=== PATIENT | female | born 1945 | race Caucasian/White ===

== ENCOUNTER → 2017-02-04 | Outpatient (CLI) | payer MEDICARE ==
--- NOTE | 2017-02-05 06:56 | XR ---
EXAMINATION TYPE: XR chest 2V DATE OF EXAM: 02/04/2017 HISTORY: R05 Cough, R06.02 Shortness of breath. REFERENCE: Previous study dated 05/09/2010. FINDINGS: The lungs are clear. Pleural spaces are clear. Heart size is normal. IMPRESSION: NORMAL CHEST.
== END ==
LOC: RADXRMAIN 15:57
PROVIDERS: ATTEND Internal Medicine Geriatric Medicine
DX: R05 Cough (principal); R06.02 Shortness of breath
CPT/HCPCS: 71020

== ENCOUNTER → 2017-03-19 | Outpatient (CLI) | payer MEDICARE ==
--- NOTE | 2017-03-20 12:20 | MM ---
Reason for exam: screening (asymptomatic). Last mammogram was performed 3 years and 6 months ago. History: Patient is postmenopausal and has history of endometrial cancer at age 38. Took estrogen for 8 years 8 months. Physical Findings: A clinical breast exam by your physician is recommended on an annual basis and results should be correlated with mammographic findings. MG 3D Screening Mammo W/Cad Bilateral CC and MLO view(s) were taken. Prior study comparison: September 30, 2013, bilateral digital screening mammo w/CAD. The breast tissue is heterogeneously dense. This may lower the sensitivity of mammography. No significant changes when compared with prior studies. ASSESSMENT: Negative, BI-RAD 1 RECOMMENDATION: Routine screening mammogram of both breasts in 1 year.
== END | disposition home or self-care (01) ==
LOC: RADMAMWWP 11:07
PROVIDERS: ATTEND Internal Medicine Geriatric Medicine
DX: Z12.31 Encounter for screening mammogram for malignant neoplasm of breast (principal)
CPT/HCPCS: 77063; G0202

== ENCOUNTER → 2017-09-23 | Outpatient (CLI) | payer MEDICARE ==
[2017-09-23 12:31] LABS: Anion Gap 11 mmol/L; Blood Urea Nitrogen 12 mg/dL (7-17); Calcium 9.9 mg/dL (8.4-10.2); Carbon Dioxide 28 mmol/L (22-30); Chloride 104 mmol/L (98-107); Glucose 110 mg/dL (74-99); Potassium 4.6 mmol/L (3.5-5.1); Sodium 143 mmol/L (137-145)
== END | disposition home or self-care (01) ==
LOC: LABWHC1 11:55
PROVIDERS: ATTEND Internal Medicine Nephrology
DX: N18.3 Chronic kidney disease, stage 3 (moderate) (principal)
CPT/HCPCS: 36415; 80048

== ENCOUNTER → 2017-09-23 | Outpatient (CLI) | payer MEDICARE ==
--- NOTE | 2017-10-01 10:54 | P.ARTDOP ---
Arterial Doppler Upper EXTREMITY ARTERIAL DOPPLER: DATE OF SERVICE: 09/23/2017 Reason for study: Altered pressures left arm. Doppler waveforms: Multiphasic throughout on the right. Atypical throughout at the left brachial and below. Pressure gradients: At the brachial on the left. Radial pressure on the right is 138 and on the left is 1:15. Impression: There is a significant gradient across the left brachial and right to left at the radial. Suggests occlusive process of the left brachial. Clinical correlation recommended.
== END | disposition home or self-care (01) ==
LOC: RADUSWWP 12:00
PROVIDERS: ATTEND Internal Medicine Interventional Cardiology
DX: I77.1 Stricture of artery (principal)
CPT/HCPCS: 93923

== ENCOUNTER → 2017-11-08 | Outpatient (CLI) | payer MEDICARE ==
--- NOTE | 2017-11-08 12:36 | CT ---
EXAMINATION TYPE: CT sinus wo con DATE OF EXAM: 11/08/2017 COMPARISON: NONE HISTORY: Maxillary sinusitis per order. Left-sided facial swelling for 4 weeks with headaches and diz ziness and vision changes all per patient. CT DLP: 589 mGycm. Automated Exposure Control for Dose Reduction was Utilized. TECHNIQUE: CT scan of the sinuses is performed without contrast, axial images are obtained, coronal r eformatted images are also reviewed. FINDINGS: There is slightly smaller caliber right maxillary sinus identified. There is nonformed left frontal sinus noted. Visualized sinuses are clear without suspicious opacification or air-fluid leve ls. The ostiomeatal complex is patent bilaterally on the coronal images. Visualized portion of mastoid air cells show no abnormal opacification. The globes are intact bilate rally. Visualized portion of brain parenchyma shows mild to moderate diffuse age-related cerebral at rophy. IMPRESSION: The paranasal sinuses are clear and the ostiomeatal complex is patent bilaterally.
== END | disposition home or self-care (01) ==
LOC: RADCTMAIN 11:51
PROVIDERS: ATTEND Internal Medicine Geriatric Medicine
DX: J32.0 Chronic maxillary sinusitis (principal)
CPT/HCPCS: 70486

== ENCOUNTER 2017-11-18 06:22 | Day surgery (SDC) | payer MEDICARE ==
[2017-11-12 13:59] VITALS: BMI 31.5
[~2017-11-18 06:22] MED LIST: ALPRAZolam 0.25 MG TAB PO PRN; ALPRAZolam 0.5 MG TAB PO PRN; ASPIRIN 325 MG TAB PO STA; ATORVASTATIN 80 MG TAB PO STA; NITROGLYCERIN SL TABS 0.4 MG TAB SUBLINGUAL PRN; SODIUM CHLORIDE 0.9% 1,000 ML in EMPTY BAG 1 BAG IV ONE
[2017-11-18 07:00] VITALS: TEMP 98
[2017-11-18 07:04] LABS: HCT 37.7 % (34.0-46.0); HGB 12.7 gm/dL (11.4-16.0); MCH 29.5 pg (25.0-35.0); MCHC 33.7 g/dL (31.0-37.0); MCV 87.5 fL (80.0-100.0); Mean Platelet Volume 7.9; Platelet Count 284 k/uL (150-450); RBC 4.31 m/uL (3.80-5.40); WBC 7.9 k/uL (3.8-10.6)
[2017-11-18 07:12] LABS: Potassium 4.1 mmol/L (3.5-5.1)
[2017-11-18] MEDS ORDERED: LIDOCAINE 2% INJ 20 MG/ML (20 ML MDV) ONE ×2 (07:18→07:46)
[2017-11-18] MEDS ORDERED: fentaNYL (PF) 50 MCG/ML 2 ML AMP ONE (07:19)
[2017-11-18] MEDS ORDERED: fentaNYL (PF) 50 MCG/ML 2 ML AMP IV ONE (07:28)
[2017-11-18] MEDS ORDERED: LIDOCAINE 2% INJ 20 MG/ML SQ ONE ×3 (07:31→07:48)
[2017-11-18 07:32] LABS: Glucose,Whole Blood 102 mg/dL (75-99)
[2017-11-18] MEDS ORDERED: IOPAMIDOL-370 125ML BTL INJ ONE (07:45)
[2017-11-18 07:59] LABS: Eosinophils # (M) 0.08 k/uL (0-0.7); Lymphocytes # (M) 4.58 k/uL (1.0-4.8); Monocytes # (M) 0.87 k/uL (0-1.0); Neutrophils # (M) 2.45 k/uL (1.3-7.7); Neutrophils % (M) 31 %; Nucleated Red Blood Cells 0 /100 WBC (0-0); Total Cells Counted 200
[2017-11-18] MEDS ORDERED: RX INFO: IV CONTRAST WAS GIVEN 1 EACH MISC MISCELLANE PRN (08:09)
[2017-11-18] MEDS ORDERED: LEVOTHYROXINE 50 MCG TAB PO SCH (08:15)
[2017-11-18] MEDS ORDERED: SODIUM CHLORIDE 0.9% 1,000 ML IV SCH (08:15)
[2017-11-18] MEDS ORDERED: NON-FORMULARY DRUG (Cyanocobalamin (Vitamin B-12) [Vitamin B-12] 1,000 MCG) PO SCH (08:15)
--- NOTE | 2017-11-18 08:38 | CC ---
CARDIAC CATHETERIZATION REPORT Mrs. Angulo is a 71-year-old female with known history of hypertension, hyperlipidemia, and diabetes mellitus who has been complaining of dyspnea on exertion. Underwent a myocardial perfusion imaging that revealed lateral wall ischemia. In view of that, recommendation was made regarding cardiac catheterization. The procedures as well as the risks and complications were discussed with the patient who is in full understanding and agreement. PROCEDURE: Patient was brought to the medical laboratory technicians in a fasting semi-sedated state after receiving fentanyl and Benadryl and after receiving moderate conscious state, she was draped and prepped in conventional fashion using Xylocaine anesthesia in the Seldinger technique. A 6-Niuean sheath was introduced in the right femoral artery. Selective right and left angiography was performed using 6-Niuean 4 bend right and left Jillian catheter. Multiple views of the coronary artery including hemiaxial views were obtained. Following that, the right Jillian catheter was used to obtain images of the left subclavian and following that, a 6-Niuean tight pigtail catheter was introduced in the left ventricle and a 30-degree CHENG of the left ventricle was obtained. Following that, catheter and sheath were removed. Hemostasis was obtained with deployment of a Perclose. There was no immediate complication. Patient was returned to her room in stable condition. FINDINGS: FLUOROSCOPY: There is mild to moderate calcification involving the LAD. LEFT MAIN: This is a large-sized vessel bifurcating in left circumflex and left anterior descending artery. Left main coronary artery has no evidence of high-grade stenosis. LEFT ANTERIOR DESCENDING ARTERY: This is a large-sized vessel reaching toward the apex with a wraparound apex segment giving rise to a diagonal branch of moderate caliber. The left anterior descending artery proximally has a 20% plaque. The rest of the vessel has no high-grade stenosis. LEFT CIRCUMFLEX: This is a nondominant vessel giving rise to a large obtuse marginal branch. The left circumflex as well as branches have no evidence of obstructive coronary artery disease. RIGHT CORONARY ARTERY: This is a dominant vessel, moderate in caliber bifurcating in PDA, posterolateral segment and branches. The right coronary artery as well as branches have no evidence of obstructive coronary artery disease. LEFT VENTRICULOGRAM: Left ventriculogram is performed in 30-degree CHENG view and revealed normal left ventricular size and systolic function. Ejection fraction 60%. LEFT SUBCLAVIAN ANGIOGRAPHY: Left subclavian angiography revealed a 70% to 80% stenosis shortly after the takeoff in a long segment. HEMODYNAMICS: There was no gradient across the aortic valve. The left ventricular end- diastolic pressure was 16 mmHg. Next, gradient across the subclavian was 50 to 60 mmHg. CONCLUSION: 1. Mildly calcified coronary arteries with mild coronary artery disease involving the left anterior descending artery. 2. Normal left ventricular size and systolic function. 3. Severe stenosis in the left subclavian with significant gradient. Duration of procedure 22 minutes. RECOMMENDATION: Patient will be continued on aggressive coronary risk modification. She will be evaluated by Dr. Fonseca for stenting of the left subclavian. Those findings and recommendation were discussed with the patient and her family and are in full understanding and agreement. MMODL / IJN: [id number] /
--- NOTE | 2017-11-18 08:42 | LTR ---
November 18, 2017 Re: FrankytenaEvette Dear Dr. Poole: I had the opportunity to perform cardiac catheterization on Mrs. Angulo on the 18 of November and a full copy of the procedure note will be forwarded to you. In brief, she was found to have mild obstructive coronary artery disease with significant stenosis involving the left subclavian. At this time, I will continue medical therapy and I would recommend evaluation for stenting of the left subclavian. I will keep you updated on her progress. Thank you again for allowing me the opportunity to participate in her care. Please feel free to call for any questions. Sincerely yours, MD SALOME VelaL / [place]ERTON: [id number] /
[2017-11-18] MEDS ORDERED: NON-FORMULARY DRUG (Omeprazole [Omeprazole] 20 MG) PO SCH (09:00)
[2017-11-18] MEDS ORDERED: NON-FORMULARY DRUG (Ubidecarenone [Co Q-10] 200 MG) PO SCH (09:00)
[2017-11-18] MEDS ORDERED: NON-FORMULARY DRUG (Aspirin Ec 162 MG) PO SCH (09:00)
[2017-11-18] MEDS ORDERED: MAGNESIUM OXIDE 400 MG TAB PO SCH (09:00)
[2017-11-18] MEDS ORDERED: NON-FORMULARY DRUG (Sitagliptin 100 MG) PO SCH (09:00)
[2017-11-18] MEDS ORDERED: NON-FORMULARY DRUG (Omega-3 Fatty Acids/Fish Oil [Fish Oil 1,000 Mg Softgel] 1 EACH) PO SCH (09:00)
[2017-11-18] MEDS ORDERED: NON-FORMULARY DRUG (Biotin [Biotin] 5,000 MCG) PO SCH (09:00)
[2017-11-18] MEDS ORDERED: METOPROLOL SUCCINATE (ER) 25 MG TAB.ER.24H PO SCH (09:00)
[2017-11-18] MEDS ORDERED: NON-FORMULARY DRUG (Multivit-Min/Fa/Lycopen/Lutein [Centrum Silver Tablet] 1 EACH) PO SCH (09:00)
[2017-11-18] MEDS ORDERED: CHOLECALCIFEROL 1,000 UNIT TAB PO SCH (09:00)
[2017-11-18 10:54] VITALS: BP 127/61; PULSE 68; RESP 16
[2017-11-18] MEDS ORDERED: ATORVASTATIN 40 MG TAB PO SCH (21:00)
[2017-11-20] MEDS ORDERED: LEVOTHYROXINE 50 MCG TAB PO SCH (06:30)
== END 2017-11-18 14:52 | disposition home or self-care (01) ==
LOC: CATHCVL 06:22
PROVIDERS: ATTEND Internal Medicine Interventional Cardiology
DX: I25.10 Atherosclerotic heart disease of native coronary artery without angina pectoris (principal); I70.8 Atherosclerosis of other arteries; R94.39 Abnormal result of other cardiovascular function study; I10 Essential (primary) hypertension; E78.2 Mixed hyperlipidemia; I65.21 Occlusion and stenosis of right carotid artery; E11.9 Type 2 diabetes mellitus without complications; Z79.84 Long term (current) use of oral hypoglycemic drugs; Z79.899 Other long term (current) drug therapy
CPT/HCPCS: 93458; 80048; 85025; C1894; C1769; C1760; J2001; J3010; Q9967

== ENCOUNTER 2017-12-06 08:03 | Day surgery (SDC) | payer MEDICARE ==
[2017-12-06] MEDS ORDERED: SODIUM CHLORIDE 0.9% 1,000 ML IV ONE (08:15)
[2017-12-06 08:57] LABS: Glucose,Whole Blood 111 mg/dL (75-99)
[2017-12-06] MEDS ORDERED: ACETAMINOPHEN TAB 325 MG TAB PO STA (09:20)
[2017-12-06] MEDS ORDERED: MIDAZOLAM 2 MG/2 ML VIAL IVP ONE (11:22)
[2017-12-06] MEDS: fentaNYL (PF) 50 MCG/ML 2 ML AMP IVP ONE ×2 (11:22→11:56)
[2017-12-06] MEDS ORDERED: LIDOCAINE 2% INJ 20 MG/ML SQ ONE (11:27)
[2017-12-06] MEDS ORDERED: HEPARIN SODIUM 1,000 UN/ML (10ML VL) IV ONE (11:30)
[2017-12-06] MEDS ORDERED: CLOPIDOGREL 75 MG TAB PO ONE (12:06)
[2017-12-06] MEDS ORDERED: IOPAMIDOL-370 125ML BTL INJ ONE (12:06)
[2017-12-06] MEDS ORDERED: ACETAMINOPHEN 1300 MG PO PRN (12:07)
[2017-12-06] MEDS ORDERED: SODIUM CHLORIDE 0.9% 1,000 ML IV SCH (12:15)
--- NOTE | 2017-12-06 12:38 | IR ---
EXAMINATION TYPE: IR stent intravas non coronary DATE OF EXAM: 12/06/2017 CLINICAL HISTORY: Left subclavian stenosis TECHNIQUE: Fluoroscopy. COMPARISON: None. FINDINGS: Fluoroscopic guidance was provided during left upper extremity arteriogram with subsequent angioplasty and stent placement procedure performed by Dr. Fonseca. A total of 7.7 minutes of fluorosc opic time was utilized during the procedure and 6 cine images was acquired. Images acquired show acce ss with stenosis, subsequent balloon dilatation and stent placement in the left subclavian artery sugar tical or proximal portion. IMPRESSION: As Above.
--- NOTE | 2017-12-06 12:59 | PTCA ---
PERCUTANEOUSTRANS CORORONARY ANGIOGRAPHY PERCUTANEOUS PERIPHERAL INTERVENTION: DATE OF PROCEDURE: 12/06/2017 PERFORMING PHYSICIAN: Sabino Fonseca MD, rigging engineer. PROCEDURE PERFORMED: 1. Selective left subclavian angiogram. 2. Successful stenting of the proximal left subclavian artery using 8 x 27 mm Visi-Pro balloon expandable stent with good angiographic results. INDICATION: This is a pleasant 71-year-old female patient who sees Dr. Chaudhari in the office as an outpatient who was experiencing left arm discomfort and left arm intermittent claudication. She was found to have severe disease involving the left subclavian. She was brought today to undergo an intervention. APPROACH: Right common femoral artery. COMPLICATION: None. LEVEL OF SEDATION: Moderate with sedation length of 40 minutes. PROCEDURE DESCRIPTION: After obtaining an informed consent, the patient was brought to the cardiac laboratory sampler. The right common femoral artery was cannulated using micropuncture technique, the micropuncture wire passed easily, then I placed a 7-British sheath in the right common femoral artery. Anticoagulation was initiated using heparin and the patient was given a weight-based heparin at 8000 units. Subsequently I did select the left subclavian using a Angel right catheter. An 0.035 advantage wire was advanced distally in the left subclavian. After that, I did exchange my 11 cm 7-British sheath into 90 cm 7- British sheath using the 0.035 advantage wire. After that, I did balloon angioplasty using 6 mm balloon by 20 mm and after that I deployed 8 x 27 mm balloon expandable stent where the stent was positioned in the proximal left subclavian and deployed under 14 atmospheres for about 1 minute. The following angiogram showed excellent angiographic results and the procedure was completed without any complication. After that, I did exchange my 90 cm 7-British sheath into 11 cm 7-British sheath using the 0.035 advantage wire. I did after that close the right groin using the Perclose device. Procedure was completed without any complication. There was good right groin hemostasis performed by the end of the procedure. POSTPROCEDURE MANAGEMENT: 1. Dual anti-platelet therapy. 2. Risk factor modifications. 3. Follow up with the patient. MMODL / IJN: [id number] /
--- NOTE | 2017-12-06 12:59 | LTR ---
December 06, 2017 Re: Adele Evette Dear Dr. Poole: Ms. Evette Angulo was found to have severe left subclavian stenosis by Dr. Chaudhari. She was quite symptomatic and experiencing left arm intermittent claudication. Beside that, she has very diminished pulse in the left radial artery. She was brought today and underwent successful stenting of the left subclavian with good angiographic results and without any complication. Thank you for allowing us to participate in her care. Sincerely, MD DELFINO Adkins / ROVERTO: [id number] /
[2017-12-06 13:12] LABS: Glucose,Whole Blood 98 mg/dL (75-99)
[2017-12-06] MEDS ORDERED: CYANOCOBALAMIN 500 MCG TAB PO SCH (16:30)
[2017-12-06 17:00] LABS: Glucose,Whole Blood 140 mg/dL (75-99)
[2017-12-06 19:12] VITALS: BMI 32.5
[2017-12-06 20:30] LABS: Glucose,Whole Blood 236 mg/dL (75-99)
[2017-12-06] MEDS ORDERED: ATORVASTATIN 40 MG TAB PO SCH (21:00)
[2017-12-06 22:25] VITALS: RESP 18
[2017-12-07 04:26] VITALS: PULSE 80
[2017-12-07 06:13] LABS: Basophils # (A) 0.1 k/uL (0-0.2); Basophils % (A) 1 %; Eosinophils # (A) 0.3 k/uL (0-0.7); Eosinophils % (A) 3 %; HGB 12.2 gm/dL (11.4-16.0); Lymphocytes # (A) 2.3 k/uL (1.0-4.8); Lymphocytes % (A) 26 %; MCH 29.5 pg (25.0-35.0); MCHC 33.1 g/dL (31.0-37.0); MCV 89.1 fL (80.0-100.0); Mean Platelet Volume 7.4; Monocytes # (A) 0.6 k/uL (0-1.0); Monocytes % (A) 7 %; Neutrophils # (A) 5.4 k/uL (1.3-7.7); Neutrophils % (A) 62 %; Platelet Count 299 k/uL (150-450); RBC 4.15 m/uL (3.80-5.40); RDW 12.5 % (11.5-15.5); WBC 8.8 k/uL (3.8-10.6)
[2017-12-07 06:13] LABS: Glucose,Whole Blood 100 mg/dL (75-99)
[2017-12-07 06:24] LABS: Calcium 9.5 mg/dL (8.4-10.2); Potassium 4.3 mmol/L (3.5-5.1)
[2017-12-07] MEDS ORDERED: LEVOTHYROXINE 25 MCG TAB PO SCH (06:30)
[2017-12-07] MEDS ORDERED: PANTOPRAZOLE 40 MG TABLET PO SCH (07:30)
[2017-12-07] MEDS ORDERED: NON-FORMULARY DRUG (Omega-3 Fatty Acids/Fish Oil [Fish Oil 1,000 Mg Softgel] 1 EACH) PO SCH (09:00)
[2017-12-07] MEDS ORDERED: ASPIRIN 81 MG PO SCH (09:00)
[2017-12-07] MEDS ORDERED: NON-FORMULARY DRUG (Biotin [Biotin] 5,000 MCG) PO SCH (09:00)
[2017-12-07] MEDS ORDERED: METOPROLOL SUCCINATE (ER) 25 MG TAB.ER.24H PO SCH (09:00)
[2017-12-07] MEDS ORDERED: LINAGLIPTIN 5 MG TABLET PO SCH (09:00)
[2017-12-07] MEDS ORDERED: CLOPIDOGREL 75 MG TAB PO SCH (09:00)
[2017-12-07] MEDS ORDERED: NON-FORMULARY DRUG (Ubidecarenone [Co Q-10] 200 MG) PO SCH (09:00)
--- NOTE | 2017-12-07 09:36 | DS ---
DISCHARGE SUMMARY DATE OF ADMISSION: December 06, 2017. DISCHARGE DATE: December 07, 2017 BRIEF HISTORY: This is a pleasant 71-year-old female patient who was experiencing left arm intermittent claudication and she underwent an angiogram which revealed critical disease involving the left subclavian. She underwent yesterday successful stenting of the left subclavian with good angiographic results and using balloon expandable stent. The procedure was performed from the right groin. The patient is going to be discharged home today on dual anti-platelet therapy as well as on statin. She is to be seen in the office in a week. The right groin is soft with mild tenderness. MMODL / IJN: [id number] /
[2017-12-07 10:46] VITALS: BP 138/60; TEMP 97.5
[2017-12-07] MEDS ORDERED: MAGNESIUM OXIDE 400 MG TAB PO SCH (12:00)
[2017-12-07] MEDS ORDERED: MULTIVITAMINS, THERA 1 EACH TAB PO SCH (12:00)
[2017-12-07] MEDS ORDERED: CHOLECALCIFEROL 1,000 UNIT TAB PO SCH (12:00)
[2017-12-08] MEDS ORDERED: LEVOTHYROXINE 50 MCG TAB PO SCH (06:30)
== END 2017-12-07 10:43 | disposition home or self-care (01) ==
LOC: CATHCVL 08:03 → 6SEL 12:00 → CATHCVL 12-07 10:43
PROVIDERS: ATTEND Internal Medicine Interventional Cardiology
DX: I70.8 Atherosclerosis of other arteries (principal); I73.9 Peripheral vascular disease, unspecified; I10 Essential (primary) hypertension; E78.2 Mixed hyperlipidemia; I65.21 Occlusion and stenosis of right carotid artery; E11.9 Type 2 diabetes mellitus without complications; Z79.84 Long term (current) use of oral hypoglycemic drugs; Z79.890 Hormone replacement therapy; Z79.899 Other long term (current) drug therapy
CPT/HCPCS: 37236; 50433; 80048; 85025; C1894 ×2; C1769 ×4; C1725; C1760; J2001; J2250; J3010; J1644; Q9967

== ENCOUNTER 2018-09-04 19:22 | Emergency (ER) | payer MEDICARE, OTHER ==
--- NOTE | 2018-09-04 19:50 | ED ---
Fall HPI - General Chief Complaint: Fall Stated Complaint: Fall, head injury Time Seen by Provider: 09/04/18 19:46 Source: patient Mode of arrival: wheelchair - History of Present Illness Initial Comments: 72-year-old female past medical history of diabetes, hypertension, PAD on plavix presents today for chief complaint of fall. Patient states that just prior to arrival she was walking outside, when she slipped on snow covered ice. Patient states she fell onto her butt and hit the back of her head. She denies loss of consciousness. Patient is on Plavix. Patient states she has pain at the site of contact with the ground, denies diffuse headache. Patient denies diplopia, visual changes, vision loss, nausea, vomiting, muscle weakness , loss of sensation of the upper or lower extremities. Patient does admit to neck tenderness. Remainder of ROS negative, patient denies any hip pain, difficulty ambulating, injury to any other extremity, abdominal or chest trauma.Patient denies any recent fever, chills, shortness of breath, chest pain , loss of bowel bladder control, urinary retention, numbness between the legs of the lower extremities, abdominal pain, nausea or vomiting, numbness or tingling, dysuria or hematuria, constipation or diarrhea, headaches or visual changes, or any other complaints. On arrival patient is well-appearing. Ambulatory without difficulty. Patient's vital signs within acceptable limits. - Related Data Home Medications Medication Instructions Recorded Confirmed Atorvastatin Calcium [Lipitor] 40 mg PO HS 07/21/14 09/04/18 Magnesium Oxide 400 mg PO HS 07/21/14 09/04/18 Metoprolol Succinate (ER) [Toprol 25 mg PO DAILY 07/21/14 09/04/18 XL] Omeprazole 20 mg PO DAILY 07/21/14 09/04/18 Cholecalciferol [Vitamin D3] 1,000 unit PO DAILY 07/26/14 09/04/18 Levothyroxine Sodium [Synthroid] 50 mcg PO SUWEFR 07/26/14 09/04/18 Aspirin EC [Ecotrin Low Dose] 162 mg PO DAILY 11/12/17 09/04/18 Biotin 5,000 mcg PO DAILY 11/12/17 09/04/18 Cyanocobalamin (Vitamin B-12) 1,000 mcg PO MOWEFR 11/12/17 09/04/18 [Vitamin B-12] Levothyroxine Sodium [Synthroid] 25 mcg PO MOTUTHSA 11/12/17 09/04/18 Multivit-Min/FA/Lycopen/Lutein 1 tab PO DAILY 11/12/17 09/04/18 [Centrum Silver Tablet] [place]-3 Fatty Acids/Fish Oil [Fish 1 each PO DAILY 11/12/17 09/04/18 Oil 1,000 mg Softgel] Ubidecarenone [Co Q-10] 200 mg PO DAILY 11/12/17 09/04/18 metFORMIN HCL 1,000 mg PO DAILY 09/04/18 09/04/18 sitaGLIPtin PHOSPHATE [Januvia] 100 mg PO DAILY 09/04/18 09/04/18 Previous Rx's Medication Instructions Recorded Clopidogrel [Plavix] 75 mg PO DAILY #90 tab 12/07/17 Allergies Allergy/AdvReac Type Severity Reaction Status Date / Time No Known Allergies Allergy Verified 09/04/18 20:26 Review of Systems ROS Statement: Those systems with pertinent positive or pertinent negative responses have been documented in the HPI. ROS Other: All systems not noted in ROS Statement are negative. Past Medical History Past Medical History: Cancer, Diabetes Mellitus, GERD/Reflux, Hyperlipidemia, Hypertension, Musculoskeletal Disorder, Osteoarthritis (OA), Renal Disease, Thyroid Disorder Additional Past Medical History / Comment(s): HX SEVERE CRAMPS "ALL OVER"-TAKES MAGNESIUM ., HX CERVICAL CA., HX ELEV WBC, WATCHING FOR CLL. HX CHEST PRESSURE , IMPROVED W/ RX. SHORT OF BREATH WITH EXERTION. HAS "BLOCKAGE IN LT ARM"- STATES NUMBNESS LEFT ARM & HAND WITH OCCASIONAL TREMORS., INFECTION LT SIDE FACE, RECENT AB RX, REMAINS SL SWOLLEN, NO KNOWN CAUSE., STAGE 3 KIDNEY DISEASE. , HX FX BALL OF RT SHOULDER 2017., SEE CARDIOLOGY H & P. History of Any Multi-Drug Resistant Organisms: None Reported Past Surgical History: Adenoidectomy, Bladder Surgery, Heart Catheterization, Hysterectomy, Joint Replacement, Orthopedic Surgery, Tonsillectomy, Tubal Ligation Additional Past Surgical History / Comment(s): Kidney stone removal. TRIGGER THUMB. EYELIDS LIFTED. ARTHROSCOPIES PETRONA KNEES. Left knee and left hip replaced. PARTIAL Thyroid EXC., HEART CATH (11/18/17) Past Anesthesia/Blood Transfusion Reactions: Previous Problems w/ Anesthesia Additional Past Anesthesia/Blood Transfusion Reaction / Comment(s): YEARS AGO HAD HARD TIME AWAKENING FROM SURG X1. Past Psychological History: Anxiety, Depression Smoking Status: Former smoker Past Alcohol Use History: Rare Past Drug Use History: None Reported - Past Family History Mother Family Medical History: Dementia, Pulmonary Embolus Additional Family Medical History / Comment(s): Spinal stenosis. POSS PE. Parkinsons. Father Family Medical History: CVA/TIA, Diabetes Mellitus, Hypertension, Myocardial Infarction ([place]) Additional Family Medical History / Comment(s): Aortic aneurysm. Alzheimers. General Exam - General Exam Comments Initial Comments: General: The patient is awake and alert, in no distress, and does not appear acutely ill. Eye: +3 mm pupils are equal, round and reactive to light, extra-ocular movements are intact. No nystagmus. There is normal conjunctiva bilaterally. No signs of icterus. Ears, nose, mouth and throat: There are moist mucous membranes and no oral lesions. No Espinoza or raccoon sign. Neck: The neck is supple, there is no tenderness or JVD. Cardiovascular: There is a regular rate and rhythm. No murmur, rub or gallop is appreciated. Respiratory: Lungs are clear to auscultation, respirations are non-labored, breath sounds are equal. No wheezes, stridor, rales, or rhonchi. Present in all lung momin Gastrointestinal: Soft, non-distended, non-tender abdomen without masses or organomegaly noted. There is no rebound or guarding present. Musculoskeletal: Paravertebral tenderness to palpation of the cervical spine. Mild midline tenderness . She has tenderness Full range of motion to forward flexion-extension lateral flexion and rotation. Mild tenderness intermittent of the lower thoracic and lumbar spine. Paravertebral tenderness with palpable muscle spasm of the lumbar spine. Normal ROM of the upper and lower extremities , no tenderness. No tenderness to palpation of the hips and pelvis bilaterally. No pain with a si compression. No internal or external rotation noted or shortening of the legs. Patient is able to without difficulty. Strength 5/5 of the upper and lower extremities. Sensation intact of the upper and lower extremities equal bilaterally. Radial and DP pulses equal bilaterally 2+. No pronator drift. Finger to nose coordinated. Neurological: A&O x 3. CN II-XII intact, There are no obvious motor or sensory deficits. Coordination appears grossly intact. Speech is normal. Skin: Skin is warm and dry and no rashes or lesions are noted. Superficial abrasion of the simple area of head, there is no laceration. No active bleeding. Psychiatric: Cooperative, appropriate mood & affect, normal judgment. Limitations: no limitations Course Vital Signs 09/04/18 09/04/18 09/04/18 19:27 21:00 22:02 Temperature 98.2 F 98.6 F Pulse Rate 105 H 93 90 Respiratory 20 16 16 Rate Blood Pressure 145/89 119/79 138/84 O2 Sat by Pulse 97 95 99 Oximetry Medical Decision Making - Medical Decision Making 72-year-old female presenting for slip on ice. Patient denied chest pain dizziness, shortness breath, dyspnea prior to falling. Patient states it was mechanical nature. Imaging studies negative for acute intracranial or osseous process. Patient neurovascularly intact, well-appearing. No focal neurological deficits on examination. Patient tetanus updated. No evidence of laceration despite triage note obvious septal region of head. No raccoon or Espinoza sign. Patient given [place] 3 for pain management, she states this helped symptoms. I discussed case with attending provider Dr. Haro at this time we do feel patient is stable for discharge with primary care follow-up. Return parameters were discussed at length with patient who verbalizes understanding. Patient discharged stable condition appearing well. Disposition Clinical Impression: Head injury, Scalp abrasion, Scalp hematoma, Fall, Low back pain Disposition: HOME SELF-CARE Condition: Good Instructions (If sedation given, give patient instructions): Head Injury (ED), Acute Low Back Pain (ED) Additional Instructions: Please use home medications as discussed. Please follow-up with family doctor in the next 2 days. Please return to emergency room if the symptoms increase or worsen or for any other concerns, as discussed. Is patient prescribed a controlled substance at d/c from ED?: No Referrals: Ethan Poole MD [Primary Care Provider] - 1-2 days Time of Disposition: 21:49
[2018-09-04] MEDS ORDERED: Acetaminophen-Codeine 300-30mg TAB PO STA (20:20)
--- NOTE | 2018-09-04 20:48 | CT ---
EXAMINATION TYPE: CT brain jamie bnetley con DATE OF EXAM: 09/04/2018 COMPARISON: 07/05/2013 HISTORY: pain from fall, contusion to back of head CT DLP: 1296.5 mGycm Automated exposure control for dose reduction was used. TECHNIQUE: CT scan of the head and cervical spine are performed without contrast. FINDINGS: High over the convexity in the subcutaneous soft tissues is a 5 cm x 5 cm x 2 cm subcutaneo us hematoma. There is no underlying skull fracture. No intracranial hemorrhage. There is no intracran ial mass or mass effect or definite new attenuation defect. The mastoid sinus air cells and middle ea r cavities and paranasal sinuses are clear. The orbits are intact. Cervical spine is visualized in its entirety from C1 through upper thoracic levels and demonstrates s atisfactory alignment without evidence of acute fracture or dislocation. Prevertebral soft tissue ap pears within normal limits. Moderate multilevel cervical spondylosis changes noted. The C1-C2 articul ation is unremarkable. IMPRESSION: 1. There is no acute fracture or dislocation evident in the cervical spine. 2. No acute intracranial hemorrhage, mass effect, or midline shift is seen. 3. Subcutaneous hematoma high over the convexity.
[2018-09-04 21:03] VITALS: RESP 16
[2018-09-04] MEDS ORDERED: DIPH,PERTUS(ACELL)TETVAC-LF 0.5 ML VIAL IM ONE (21:12)
--- NOTE | 2018-09-04 21:17 | CT ---
EXAMINATION TYPE: CT thor lumbar spine wo con DATE OF EXAM: 09/04/2018 COMPARISON: None HISTORY: pain following fall CT DLP: 1149.6 mGycm Automated exposure control for dose reduction was used. FINDINGS: There is no fracture or malalignment. The morphology of each vertebral segments is maintained. Multilevel mild and moderate spondylosis changes are appreciated. No focal skeletal lesion. No acute paraspinal soft tissue abnormalities. IMPRESSION: NEGATIVE FOR FRACTURE OR MALALIGNMENT.
[2018-09-04 22:03] VITALS: BP 138/84; PULSE 90; TEMP 98.6
== END 2018-09-04 21:55 | disposition home or self-care (01) ==
LOC: EC 19:22
DX: S00.03XA Contusion of scalp, initial encounter (principal); M54.5 Low back pain; Z23 Encounter for immunization; E11.9 Type 2 diabetes mellitus without complications; K21.9 Gastro-esophageal reflux disease without esophagitis; E78.5 Hyperlipidemia, unspecified; I10 Essential (primary) hypertension; M19.90 Unspecified osteoarthritis, unspecified site; E07.9 Disorder of thyroid, unspecified; Z79.82 Long term (current) use of aspirin; Z79.84 Long term (current) use of oral hypoglycemic drugs; Z79.890 Hormone replacement therapy; Z79.899 Other long term (current) drug therapy; Z95.5 Presence of coronary angioplasty implant and graft; Z96.642 Presence of left artificial hip joint; Z96.652 Presence of left artificial knee joint; Z85.41 Personal history of malignant neoplasm of cervix uteri; Z87.891 Personal history of nicotine dependence; W00.0XXA Fall on same level due to ice and snow, initial encounter; Y92.009 Unspecified place in unspecified non-institutional (private) residence as the place of occurrence of the external cause
CPT/HCPCS: 70450; 72125; 72128; 72131; 90471; 90715; 99283

== ENCOUNTER → 2019-01-02 | Outpatient (CLI) | payer MEDICARE, OTHER ==
--- NOTE | 2019-01-02 14:13 | MR ---
EXAMINATION TYPE: MR neck wo/w con DATE OF EXAM: 01/02/2019 COMPARISON: None HISTORY: Facial swelling/pain CONTRAST: Multiplanar multispin echo imaging of the neck was performed both before and after the administration of contrast utilizing Gadavist 7.5 mL. FINDINGS: There appear to be changes of left-sided thyroidectomy. Right thyroid lobe is unremarkable. Visualized submandibular glands appear symmetric. Parotid glands also appear to be symmetric. No lesi on is identified. The supraglottic, glottic and subglottic portions of the airway are patent. No definitive mass identi fied. No evidence for adenopathy greater than 1 cm throughout the neck. Vascular structures appear patent and symmetric. No evidence for abscess or soft tissue mass. No significant edema identified and clinical correlation is advised. IMPRESSION: No significant abnormality to account for the patient's symptoms.
--- NOTE | 2019-01-02 14:15 | MR ---
EXAMINATION TYPE: MR orbits wo/w con DATE OF EXAM: 01/02/2019 COMPARISON: None HISTORY: Aphasia, facial swelling CONTRAST: Standard multiplanar, multisequence MRI departmental protocol utilizing 7.5 mL intravenous Gadavist g adolinium contrast. FINDINGS: The globes are symmetric. No intra or extraconal lesion is identified. No evidence for inflammatory p rocess. Optic nerves appeared symmetric and free of lesion or abnormal edema. The extraocular muscula ture appear symmetric bilaterally. There is no evidence for exophthalmos. Lacrimal glands appear unre markable. Paranasal sinuses are well-aerated. IMPRESSION: No distinct abnormality of the orbits.
== END | disposition home or self-care (01) ==
LOC: RADMRIMAIN 12:21
PROVIDERS: ATTEND Otolaryngology
DX: R22.0 Localized swelling, mass and lump, head (principal)
CPT/HCPCS: 70543; A9585

== ENCOUNTER 2020-08-10 08:54 | Emergency (ER) | payer MEDICARE, OTHER ==
--- NOTE | 2020-08-10 09:10 | ED ---
Syncope HPI - General Stated Complaint: SYNCOPE EPISODE Time Seen by Provider: 08/10/20 08:56 - History of Present Illness Initial Comments: 74-year-old female with history of hypertension presenting to the emergency department today for chief complaint of a syncopal episode. Patient states that she was watching her shovel, when she became lightheaded dizzy and felt like she is going to pass out she states she laid down and did not have syncopal episode states he stood back up she had a similar sensation.pt states she no longer feels lightheaded. She states that she has been having pain that radiates down the left posterior leg wrapping around towards the mid thigh. Patient denies any lower leg numbness denies urinary retention loss of bowel bladder control patient denies falls or direct trauma. Patient states that she thinks the pain is causing her to feel like passing out as she does not tolerate pain well as this happened in the past. Patient states the pain increases ambulation. She denies abdominal pain chest or back pain denies chest pressure jaw pain and arm pain nausea Or abdominal pain vomiting diarrhea fevers cough congestion. Patient denies a known history of aneurysm. Denies pleuritic chest pain, dyspnea. Patient states that she had some burning of the right calf last week, was evaluated with orthopedic surgeon. Patient has no additional complaints and upon arrival she appears nontoxic distress - Related Data Home Medications Medication Instructions Recorded Confirmed Atorvastatin Calcium [Lipitor] 40 mg PO HS 07/21/14 09/04/18 Magnesium Oxide 400 mg PO HS 07/21/14 09/04/18 Metoprolol Succinate (ER) [Toprol 25 mg PO DAILY 07/21/14 09/04/18 XL] Omeprazole 20 mg PO DAILY 07/21/14 09/04/18 Cholecalciferol [Vitamin D3 (25 1,000 unit PO DAILY 07/26/14 09/04/18 Mcg = 1000 Iu)] Levothyroxine Sodium [Synthroid] 50 mcg PO SUWEFR 07/26/14 09/04/18 Aspirin EC [Ecotrin Low Dose] 162 mg PO DAILY 11/12/17 09/04/18 Biotin 5,000 mcg PO DAILY 11/12/17 09/04/18 Cyanocobalamin (Vitamin B-12) 1,000 mcg PO MOWEFR 11/12/17 09/04/18 [Vitamin B-12] Levothyroxine Sodium [Synthroid] 25 mcg PO MOTUTHSA 11/12/17 09/04/18 Multivit-Min/FA/Lycopen/Lutein 1 tab PO DAILY 11/12/17 09/04/18 [Centrum Silver Tablet] [place]-3 Fatty Acids/Fish Oil [Fish 1 each PO DAILY 11/12/17 09/04/18 Oil 1,000 mg Softgel] Ubidecarenone [Co Q-10] 200 mg PO DAILY 11/12/17 09/04/18 metFORMIN HCL 1,000 mg PO DAILY 09/04/18 09/04/18 sitaGLIPtin PHOSPHATE [Januvia] 100 mg PO DAILY 09/04/18 09/04/18 Previous Rx's Medication Instructions Recorded Clopidogrel [Plavix] 75 mg PO DAILY #90 tab 12/07/17 Allergies Allergy/AdvReac Type Severity Reaction Status Date / Time No Known Allergies Allergy Verified 09/04/18 20:26 Review of Systems ROS Statement: Those systems with pertinent positive or pertinent negative responses have been documented in the HPI. ROS Other: All systems not noted in ROS Statement are negative. Past Medical History Past Medical History: Cancer, Diabetes Mellitus, GERD/Reflux, Hyperlipidemia, Hypertension, Musculoskeletal Disorder, Osteoarthritis (OA), Renal Disease, Thyroid Disorder Additional Past Medical History / Comment(s): HX SEVERE CRAMPS "ALL OVER"-TAKES MAGNESIUM ., HX CERVICAL CA., HX ELEV WBC, WATCHING FOR CLL. HX CHEST PRESSURE, IMPROVED W/ RX. SHORT OF BREATH WITH EXERTION. HAS "BLOCKAGE IN LT ARM"-STATES NUMBNESS LEFT ARM & HAND WITH OCCASIONAL TREMORS., INFECTION LT SIDE FACE, RECENT AB RX, REMAINS SL SWOLLEN, NO KNOWN CAUSE., STAGE 3 KIDNEY DISEASE., HX FX BALL OF RT SHOULDER 2017., SEE CARDIOLOGY H & P. History of Any Multi-Drug Resistant Organisms: None Reported Past Surgical History: Adenoidectomy, Bladder Surgery, Heart Catheterization, H ysterectomy, Joint Replacement, Orthopedic Surgery, Tonsillectomy, Tubal Ligation Additional Past Surgical History / Comment(s): Kidney stone removal. TRIGGER THUMB. EYELIDS LIFTED. ARTHROSCOPIES PETRONA KNEES. Left knee and left hip replaced. PARTIAL Thyroid EXC., HEART CATH (11/18/17) Past Anesthesia/Blood Transfusion Reactions: Previous Problems w/ Anesthesia Additional Past Anesthesia/Blood Transfusion Reaction / Comment(s): YEARS AGO HAD HARD TIME AWAKENING FROM SURG X1. Past Psychological History: Anxiety, Depression Past Alcohol Use History: Rare Past Drug Use History: None Reported - Past Family History Mother Family Medical History: Dementia, Pulmonary Embolus Additional Family Medical History / Comment(s): Spinal stenosis. POSS PE. Parkinsons. Father Family Medical History: CVA/TIA, Diabetes Mellitus, Hypertension, Myocardial Infarction ([place]) Additional Family Medical History / Comment(s): Aortic aneurysm. Alzheimers. General Exam - General Exam Comments Initial Comments: General: The patient is awake and alert, in no distress Eye: Pupils are equal, round and reactive to light, extra-ocular movements are intact. No nystagmus. There is normal conjunctiva bilaterally. No signs of icterus. Ears, nose, mouth and throat: There are moist mucous membranes and no oral lesions. Neck: The neck is supple, there is no tenderness or JVD. Cardiovascular: There is a regular rate and rhythm. No murmur, rub or gallop is appreciated. Respiratory: Lungs are clear to auscultation, respirations are non-labored, breath sounds are equal. No wheezes, stridor, rales, or rhonchi. Gastrointestinal: Soft, non-distended, non-tender abdomen without masses or organomegaly noted. There is no rebound or guarding present. No pulsatile masses Musculoskeletal: Normal inspection of the cervicothoracic and lumbar spine no midline tenderness however there is left-sided paraspinal tenderness .Normal ROM, of the LE including left hip intact, tenderness causes shooting pain when moved. Strength 5/5 of the LE b/l. Sensation intact of the LE b/l. Radial and DP pulses equal bilaterally 2+. Neurological: A&O x 3. CN II-XII intact grossly, There are no obvious motor or sensory deficits. Coordination appears grossly intact. Speech is normal. Skin: Skin is warm and dry and no rashes or lesions are noted. no LE edema. Psychiatric: Cooperative, appropriate mood & affect, normal judgment. Course Vital Signs 08/10/20 08/10/20 08:58 10:48 Temperature 98.0 F 97.8 F Pulse Rate 76 75 Respiratory 16 14 Rate Blood Pressure 123/77 120/68 O2 Sat by Pulse 98 99 Oximetry EKG Findings - EKG Comments: EKG Findings:: Ventricular rate 69 bpm, NE interval 154 ms, QRS duration 88 ms, QT/QTC 404/432 ms this is normal sinus no ST elevation or depression is appreciated Medical Decision Making - Medical Decision Making cc presyncope, sciatica like pain. Labs stable. performed orthostatic BP/HR normal. Pt troponin (-). Dimer (-). CXR clear. XR degenerative changes that do no appear to be an acute osseous process. pt EKG no acute findings. no presyncope in ER. pt states she thinks it was all due to her low back pain that radiates to the left leg, no swelling on exam. pulses WNL. no skin changes. pt ambulatory. pt ricardo tylenol #3 she states she wants to go home. recommended outpatient lumbar MRI, return for recurrent symptoms of presyncope or uncontrolled pain. pt disdcharged appearing well. Dr. Farr agreeable to care plan. - Lab Data Result diagrams: 08/10/20 09:24 08/10/20 09:24 Lab Results 08/10/20 08/10/20 08/10/20 Range/Units 09:24 09:24 09:24 WBC 10.9 H (3.8-10.6) k/uL RBC 4.39 (3.80-5.40) m/uL Hgb 13.3 (11.4-16.0) gm/dL Hct 39.8 (34.0-46.0) % MCV 90.7 (80.0-100.0) fL MCH 30.4 (25.0-35.0) pg MCHC 33.5 (31.0-37.0) g/dL RDW 12.3 (11.5-15.5) % Plt Count 302 (150-450) k/uL MPV 7.2 Neutrophils % 68 % Lymphocytes % 17 % Monocytes % 6 % Eosinophils % 7 % Basophils % 1 % Neutrophils # 7.4 (1.3-7.7) k/uL Lymphocytes # 1.9 (1.0-4.8) k/uL Monocytes # 0.6 (0-1.0) k/uL Eosinophils # 0.7 (0-0.7) k/uL Basophils # 0.1 (0-0.2) k/uL PT 9.5 (9.0-12.0) sec INR 0.9 (<1.2) APTT 20.6 L (22.0-30.0) sec D-Dimer 0.48 (<0.60) mg/L FEU Sodium 137 (137-145) mmol/L Potassium 4.5 (3.5-5.1) mmol/L Chloride 106 (98-107) mmol/L Carbon Dioxide 26 (22-30) mmol/L Anion Gap 5 mmol/L BUN 15 (7-17) mg/dL Creatinine 0.90 (0.52-1.04) mg/dL Est GFR (CKD-EPI)AfAm 74 (>60 ml/min/1.73 sqM) Est GFR (CKD-EPI)NonAf 64 (>60 ml/min/1.73 sqM) Glucose 107 H (74-99) mg/dL Plasma Lactic Acid Isiah (0.7-2.0) mmol/L Calcium 9.2 (8.4-10.2) mg/dL Magnesium 2.0 (1.6-2.3) mg/dL Total Bilirubin 0.3 (0.2-1.3) mg/dL AST 19 (14-36) U/L ALT 12 (4-34) U/L Alkaline Phosphatase 60 (38-126) U/L Troponin I (0.000-0.034) ng/mL NT-Pro-B Natriuret Pep pg/mL Total Protein 6.0 L (6.3-8.2) g/dL Albumin 3.6 (3.5-5.0) g/dL 08/10/20 08/10/20 08/10/20 Range/Units 09:24 09:24 09:24 WBC (3.8-10.6) k/uL RBC (3.80-5.40) m/uL Hgb (11.4-16.0) gm/dL Hct (34.0-46.0) % MCV (80.0-100.0) fL MCH (25.0-35.0) pg MCHC (31.0-37.0) g/dL RDW (11.5-15.5) % Plt Count (150-450) k/uL MPV Neutrophils % % Lymphocytes % % Monocytes % % Eosinophils % % Basophils % % Neutrophils # (1.3-7.7) k/uL Lymphocytes # (1.0-4.8) k/uL Monocytes # (0-1.0) k/uL Eosinophils # (0-0.7) k/uL Basophils # (0-0.2) k/uL PT (9.0-12.0) sec INR (<1.2) APTT (22.0-30.0) sec D-Dimer (<0.60) mg/L FEU Sodium (137-145) mmol/L Potassium (3.5-5.1) mmol/L Chloride (98-107) mmol/L Carbon Dioxide (22-30) mmol/L Anion Gap mmol/L BUN (7-17) mg/dL Creatinine (0.52-1.04) mg/dL Est GFR (CKD-EPI)AfAm (>60 ml/min/1.73 sqM) Est GFR (CKD-EPI)NonAf (>60 ml/min/1.73 sqM) Glucose (74-99) mg/dL Plasma Lactic Acid Isiah 1.4 (0.7-2.0) mmol/L Calcium (8.4-10.2) mg/dL Magnesium (1.6-2.3) mg/dL Total Bilirubin (0.2-1.3) mg/dL AST (14-36) U/L ALT (4-34) U/L Alkaline Phosphatase (38-126) U/L Troponin I <0.012 (0.000-0.034) ng/mL NT-Pro-B Natriuret Pep 405 pg/mL Total Protein (6.3-8.2) g/dL Albumin (3.5-5.0) g/dL Disposition Clinical Impression: Pre-syncope, Low back pain, Radiculopathy, Spondylisthesis Disposition: HOME SELF-CARE Condition: Good Instructions (If sedation given, give patient instructions): Near Syncope (ED), Lumbar Radiculopathy (ED) Additional Instructions: Please use medication as discussed. Please follow-up with family doctor in the next 2 days, as well as orthopedic spine within the next week Please return to emergency room if the symptoms increase or worsen or for any other concerns. . Is patient prescribed a controlled substance at d/c from ED?: No Referrals: Ethan Poole MD [Primary Care Provider] - 1-2 days Maynor Tran DO [Doctor of Osteopathic Medicine] - 1-2 days Time of Disposition: 11:07
[2020-08-10 09:45] LABS: Basophils # (A) 0.1 k/uL (0-0.2); Basophils % (A) 1 %; Eosinophils # (A) 0.7 k/uL (0-0.7); Eosinophils % (A) 7 %; HCT 39.8 % (34.0-46.0); HGB 13.3 gm/dL (11.4-16.0); Lymphocytes # (A) 1.9 k/uL (1.0-4.8); Lymphocytes % (A) 17 %; MCH 30.4 pg (25.0-35.0); MCHC 33.5 g/dL (31.0-37.0); MCV 90.7 fL (80.0-100.0); Mean Platelet Volume 7.2; Monocytes # (A) 0.6 k/uL (0-1.0); Monocytes % (A) 6 %; Neutrophils # (A) 7.4 k/uL (1.3-7.7); Neutrophils % (A) 68 %; Platelet Count 302 k/uL (150-450); RBC 4.39 m/uL (3.80-5.40); RDW 12.3 % (11.5-15.5); WBC 10.9 k/uL (3.8-10.6)
[2020-08-10 09:54] LABS: Albumin 3.6 g/dL (3.5-5.0); Calcium 9.2 mg/dL (8.4-10.2); Potassium 4.5 mmol/L (3.5-5.1); Total Bilirubin 0.3 mg/dL (0.2-1.3)
--- NOTE | 2020-08-10 10:01 | XR ---
EXAMINATION TYPE: XR chest 2V DATE OF EXAM: 08/10/2020 COMPARISON: 02/04/2017 HISTORY: 74-year-old female shortness of breath, syncope, difficulty breathing TECHNIQUE: PA and lateral views FINDINGS: Heart normal size. Aorta and pulmonary vasculature within normal limits. Aortic arch great vessel anam nt is present. Mild interstitial prominence is unchanged. No consolidation or pleural effusion. IMPRESSION: Chronic changes without acute cardiopulmonary process.
--- NOTE | 2020-08-10 10:10 | XR ---
EXAMINATION TYPE: XR lumbar spine 3 views, XR Hip Complete 2 views LT DATE OF EXAM: 08/10/2020 Comparison: 74-year-old female Clinical History: low back pain Findings: Lumbar spine: Patient is obliqued towards the right. 5 lumbar type vertebral bodies. Hypertrophic facet arthropathy mid to lower lumbar spine with grade 1, nearly grade 2 anterolisthesis at L4-L5. Mild to moderate de generative disc disease lower thoracic spine and mild throughout the lumbar spine. Vertebral body hei ghts are preserved. Left hip: Left hip total arthroplasty is demonstrated. Osteitis pubis. No significant loosening or care prosthe tic fracture seen. Some irregularity at the ischial tuberosity suggests chronic tendinopathy. Impression: 1. Lumbar spine: Mild multilevel degenerative disc disease. Hypertrophic facet arthropathy mid to low er lumbar spine with grade 1, nearly grade 2 anterolisthesis at L4-L5. No vertebral compression colla pse. 2. Left hip: Uncomplicated appearance to the left hip total arthroplasty. No acute osseous abnormalit y seen.
[2020-08-10 10:15] LABS: INR 0.9 (<1.2); Partial Thromboplastin Time 20.6 sec (22.0-30.0); Prothrombin Time 9.5 sec (9.0-12.0)
--- NOTE | 2020-08-10 10:48 | US ---
EXAMINATION TYPE: US venous doppler duplex LE RT DATE OF EXAM: 08/10/2020 10:20 AM COMPARISON: NONE CLINICAL HISTORY: 74-year-old female recent knee surgery calf burning. SIDE PERFORMED: right TECHNIQUE: The lower extremity deep venous system is examined utilizing real time linear array sonog raad with graded compression, doppler sonography and color-flow sonography. FINDINGS: VESSELS IMAGED: Common Femoral Vein Deep Femoral Vein Greater Saphenous Vein * Femoral Vein Popliteal Vein Small Saphenous Vein * Proximal Calf Veins (* superficial vessels) Right Leg: no evidence of DVT. Anechoic area right popliteal fossa = 4.6 x 1.6cm, Munroe's cyst . IMPRESSION: 1. No evidence for DVT within the right lower extremity imaged from the groin to the upper calf. 2. Moderate sized elongated 4.6 x 1.6 cm Munroe's cyst.
[2020-08-10 10:49] VITALS: TEMP 97.8
[2020-08-10] MEDS ORDERED: ACET/COD 300 MG/30 MG STARTER PACK 6 TAB BTL PO STA (11:17)
[2020-08-10 11:28] VITALS: BP 130/63; PULSE 80; RESP 18
== END 2020-08-10 11:39 | disposition home or self-care (01) ==
LOC: EC 08:54
DX: R55 Syncope and collapse (principal); M54.10 Radiculopathy, site unspecified; M43.16 Spondylolisthesis, lumbar region; E78.5 Hyperlipidemia, unspecified; M79.652 Pain in left thigh; I10 Essential (primary) hypertension; E11.9 Type 2 diabetes mellitus without complications; K21.9 Gastro-esophageal reflux disease without esophagitis; E07.9 Disorder of thyroid, unspecified; Z79.899 Other long term (current) drug therapy; Z79.890 Hormone replacement therapy; Z79.82 Long term (current) use of aspirin; Z79.84 Long term (current) use of oral hypoglycemic drugs; Z85.41 Personal history of malignant neoplasm of cervix uteri
CPT/HCPCS: 36415; 71046; 72100; 73502; 80053; 83605; 83735; 83880; 84484; 85025; 85379; 85610; 85730; 93005; 99284

== ENCOUNTER → 2021-01-23 | Outpatient (CLI) | payer MEDICARE, OTHER ==
--- NOTE | 2021-01-23 15:49 | NM ---
EXAMINATION TYPE: NM bone scan whole body DATE OF EXAM: 01/23/2021 COMPARISON: 01/13/2021 HISTORY: Radiculopathy, spondylosis Delayed whole-body scanning was performed following the injection of 21.9 mCi Tc 99m MDP. Images acq uired 3 hours post injection. FINDINGS: There is increased uptake seen within L2, L4 and L5 vertebral bodies. Increased uptake in the bilateral shoulders, right knee and bilateral feet and first carpometacarpal articulations are most likely due to degenerative changes. Osteopenia of the left knee is consistent with knee replacement hardware. Bilateral kidneys are seen. IMPRESSION: Focal uptake of the L2, L4 and L5 vertebral bodies is nonspecific. This may be due to degenerative ve rsus posttraumatic changes, however, other etiologies including neoplasm are also possible and correl ation with patient's clinical history is recommended.
== END | disposition home or self-care (01) ==
LOC: RADNMMAIN 11:11
PROVIDERS: ATTEND Physical Medicine & Rehabilitation
DX: M54.16 Radiculopathy, lumbar region (principal); M47.817 Spondylosis without myelopathy or radiculopathy, lumbosacral region; R20.2 Paresthesia of skin; M43.16 Spondylolisthesis, lumbar region; M70.62 Trochanteric bursitis, left hip; Z96.652 Presence of left artificial knee joint; Z96.642 Presence of left artificial hip joint
CPT/HCPCS: 78306; A9503

== ENCOUNTER → 2021-08-30 | Outpatient (CLI) | payer MEDICARE, OTHER ==
[2021-08-30 12:17] VITALS: BP 125/68; PULSE 82; RESP 18; TEMP 98.1
== END | disposition home or self-care (01) ==
LOC: PNWHC3 08:48
PROVIDERS: ATTEND Physician Assistant Medical
DX: M54.16 Radiculopathy, lumbar region (principal); M47.817 Spondylosis without myelopathy or radiculopathy, lumbosacral region; M43.16 Spondylolisthesis, lumbar region; M70.62 Trochanteric bursitis, left hip; M70.61 Trochanteric bursitis, right hip
CPT/HCPCS: 99211

== ENCOUNTER → 2021-09-15 | Day surgery (SDC) | payer MEDICARE, OTHER ==
[2021-09-13 15:34] VITALS: BMI 28.3
[~2021-09-15] MED LIST changes: -ALPRAZolam 0.25 MG TAB PO PRN; -ALPRAZolam 0.5 MG TAB PO PRN; -ASPIRIN 325 MG TAB PO STA; -ATORVASTATIN 80 MG TAB PO STA; +IV FLUID CONTINUATION 1,000 ML IV ONE; +LACTATED RINGERS 1,000 ML IV SCH; +MIDAZOLAM 2 MG/2 ML VIAL ONE; -NITROGLYCERIN SL TABS 0.4 MG TAB SUBLINGUAL PRN; +ROPIVACAINE 5MG/ML 20ML VIAL ONE; -SODIUM CHLORIDE 0.9% 1,000 ML in EMPTY BAG 1 BAG IV ONE; +fentaNYL (PF) 50 MCG/ML 2 ML AMP ONE; +methylPREDNISolone ACETATE 40 MG/ML 1 ML VIAL ONE
[2021-09-15 09:40] VITALS: RESP 16; TEMP 97.9
[2021-09-15 09:47] LABS: Glucose,Whole Blood 110 mg/dL (75-99)
--- NOTE | 2021-09-15 10:48 | P.PCN ---
Date of Procedure: 09/15/21 Procedure(s) Performed: PREOPERATIVE DIAGNOSIS: 1-Lumbar Spondylosis with Facet Arthropathy without myelopathy. 2- Lumber degenerative disc disease. POSTOPERATIVE DIAGNOSIS: 1- Lumbar Spondylosis with Facet Arthropathy without myelopathy. 2- Lumber degenerative disc disease. PROCEDURES : Bilateral Radiofrequency thermocoagulation, L3 , L4 , and L5 medial branch, with fluoroscopic guidance (fluoroscopy images available in the radiology department) ( to denervate the facet joint at Bilateral L4-5 ,and L5-S1 levels ). ANESTHESIA: Monitored anesthesia care as per anesthesia department . EBL: Minimal PROCEDURE INDICATION: The patient with low back pain secondary to lumbar facet arthropathy who had excellent pain relief after diagnostic medial branch block done by Dr. Dr. Glaser recently, patient was referred to us to have RFA of the medial branch lumbar area at the levels mentioned above PROCEDURE DESCRIPTION / TECHNIQUE: The patient was seen and identified in the preoperative area. Risks, benefits, complications, including but not limited to risk of infection ,bleeding , allergic reactions to the medications and no complete pain releife , and alternatives were discussed with the patient, the patient agreed to proceed with the procedure and signed the consent. IV was started. Vital signs remained stable throughout the procedure. Patient was taken to the OR and time out was completed. The patient was placed in the prone position on the procedure table. The lumber area was prepped and draped in the usual sterile fashion. . Vital signs were closely monitored during the procedure .IV sedation was used during the procedure to decrease patients anxiety. Using AP and then oblique fluoroscopy, the ``eye of the Minor dog corresponding to the connection between the superior and transverse articular processes of right L3, L4, and L5 were identified, marked, and localized with 1% lidocaine. Subsequently, a 18 -jk radiofrequency cannula with a 10- mm active tip was advanced guided by fluoroscopy to each of the``eyes of the Minor dog at right L3, L4, and L5. Each site then underwent sensory testing at 50 Hz and 0 to 1 volt and motor testing at 2.5 Hz and 0 to 3 volt with local stimulation, but no radicular symptoms down the legs. Thereafter each sites underwent radiofrequency thermocoagulation at 80 degrees celsius for 90 seconds after injecting 0.5 ml of PF Ropivacaine 1ml, then after the thermocoagulation done , 1 ml of the block solution containing Depo-Medrol 20 mg and 3 ml of Ropivacaine 0.5% was injected at the right L3 , L4 , and L5 , levels after negative aspiration of CSF and blood and with no paresthesias. Cannulas were retracted while injecting lidocaine 1% until the needle is out. The same procedure was repeated at the level of Left L3, L4, and L5 levels. At the end of the procedure, the skin was cleansed and bandages were applied. COMPLICATIONS: No acute complications. DISPOSITION / PLANS: The patient was placed in a supine position and transferred to the recovery area in a stable condition for observation and was discharged from the recovery room after meeting discharge criteria. Home discharge instructions given to the patient by the staff. The patient was reexamined prior to discharge. The patient will schedule a follow up in the clinic in 2-4 weeks.
[2021-09-15 11:20] VITALS: BP 132/75; PULSE 70
--- NOTE | 2021-09-15 14:13 | FL ---
Fluoroscopy History: RAD FREQ RF LUMBAR BILATERAL 3 LEVELS, 13SEC FL TIME
== END | disposition home or self-care (01) ==
LOC: ORPAIN 09:12
PROVIDERS: ATTEND Specialist
DX: M47.816 Spondylosis without myelopathy or radiculopathy, lumbar region (principal); M51.36 Other intervertebral disc degeneration, lumbar region
CPT/HCPCS: 64635; 64636; J2250; J1030; J3010; J2795

== ENCOUNTER → 2021-10-05 | Outpatient (CLI) | payer MEDICARE, OTHER ==
[2021-10-05 09:54] VITALS: BP 119/68; PULSE 84; RESP 18; TEMP 98.2
--- NOTE | 2021-10-05 10:17 | P.PN ---
Subjective Progress Note Date: 10/05/21 Principal diagnosis: A 75 yr old female with a history of severe and chronic low back pain secondary to lumbar degenerative disc diseases and lumbar spondylosis with facet arthropathy presents today for evaluation status post bilateral RFA of the L4- L5, L5-S1. Patient states she experienced 98% pain relief status post procedure. Pain level is currently at 1 out of 10 in intensity, tightness in the lower right aspect of the lumbar spine without radiation of pain, tingling or numbness. Pain is provoked by weight bearing, bending or lifting. Patient uses a cane for ambulatory assistance ago she is not dependent on it currently. Pain is alleviated with Tylenol OTC, injections, ice, heat, physical therapy on and off for the last 2 years, home exercise regimen, use of a cane for ambulatory assistance, massage and rest. Interventional pain procedures completed include bilateral RFA of the L4-L5, L5- S1 Patient is currently on Tylenol OTC Patient denies any side effects of the medication(s), denies excessive drowsiness or sleepiness, denies suicidal ideation and reports that the current pain medication is helping to control the pain and improve activities of daily living. Patient denies any motor or sensory deficits. Patient denies any fever or night sweats, denies any change in the bowel movements or urination. Physical Examination: -Constitutional: Cooperative. Not in acute distress . -HEENT: Neck is supple. No lymphadenopathy. No thyromegaly. Normal thyroid size. Eyes: No ptosis , no icterus, no photophobia. ENT: No auditory deficits. Normal oropharynx. No Thrush. - Respiratory: Chest clear to auscultations bilaterally. No wheezing. No rhonchi. - Cardiovascular: Regular rate and rhythm. S1 / S2 , no S3 , no S4. - Gastrointestinal: Abdomen soft no tenderness. Bowel sounds positive in all four quadrants. No organomegaly. - Genitourinary: Deferred. - Neurologic: Cranial nerve II to XII intact. No focal neurological deficits. - Psychatric: Alert & oriented x 3. Matching mood & appropriate affect. Judgment and insight intact. - Lymphatic: No Lymphadenopathy. - Musculoskeletal: Cervical spine: Muscle bulk/ tone/ strength in the bilateral upper extremities normal. Facet loading test cervical area positive. Lumbar spine: Motor bulk/ tone/ strength lower extremities , thigh and legs : 5/5 Deep tendon reflexes : Normal Knee Jerk. Normal Ankle Jerk . Vertebral body tenderness to palpation over Lumbar Facet Loading Test positive Straight Leg Raise: positive at 30 degrees right side/ left side Gaenslen's Test positive Sacral spine : Severe tenderness over the Sacroiliac joint: right side / left side Range of motion: Flexion of the lumbar spine <60 degrees Range of motion: Extension of the lumbar spine <20 degrees Gaenslen's Test positive Yodit test: positive right side / left side Assessment and plan: Chronic low back pain secondary to lumbar degenerative disc disease , lumbar spondylosis with facet arthropathy without myelopathy Patient may return to office on an as-needed basis All patient questions answered MAPS reviewed and it was appropriate. I have spent 31 minutes on patient care today. Dr Montesinos was available by phone for the evaluation of this patient. The time was used to review the medical records including relevant urine studies and Prescription history (MAPs), review of the available imaging, evaluation and examination of the patient, coordination of care with the medical staff and if applicable referring physicians, as well as creation of the medical record Objective - Vital Signs Vital signs: Vital Signs Temp 98.2 F 10/05/21 09:48 Pulse 84 10/05/21 09:48 Resp 18 10/05/21 09:48 BP 119/68 10/05/21 09:48 Pulse Ox 97 10/05/21 09:48 Intake & Output 10/04/21 10/05/21 10/05/21 18:59 06:59 18:59 Weight 71.214 kg PQRS Measure Charge Sheet Mode of Arrival: Ambulatory, Cane - Pain Location Lower Back Non-Pharmacological Interventions: Physical Therapy, Position/Reposition, Stretching Pharmacological Interventions: Block, PRN Medication PQRS Narrative: Smoking Status Former smoker Blood Pressure 119/68 Pain Intensity [Lower Back] 1 Scale Used Numeric (1 - 10) Hx Alcohol Use (MH) No Home Medications: Ambulatory Orders Atorvastatin Calcium [Lipitor] 40 mg PO HS 07/21/14 Magnesium Oxide 800 mg PO HS 07/21/14 Metoprolol Succinate (ER) [Toprol XL] 25 mg PO DAILY 07/21/14 Levothyroxine Sodium [Synthroid] 25 mcg PO EUCEDA 07/26/14 Aspirin EC [Ecotrin Low Dose] 81 mg PO DAILY 11/12/17 Biotin [Biotin Disolve] 10,000 mcg PO DAILY 11/12/17 Cyanocobalamin (Vitamin B-12) [Vitamin B-12] 1,000 mcg PO MOWEFR 11/12/17 Levothyroxine Sodium [Synthroid] 50 mcg PO MOTUWETHFRSA 11/12/17 Multivit-Min/FA/Lycopen/Lutein [Centrum Silver Tablet] 1 tab PO DAILY 11/12/17 Ubidecarenone [Co Q-10] 200 mg PO DAILY 11/12/17 Esomeprazole Magnesium 20 mg PO DAILY 08/25/21 Potassium Gluconate [Potassium Gluconate ER] 99 mg PO DAILY 08/25/21 rOPINIRole HCL [Requip] 4 mg PO HS 08/25/21 sitaGLIPtin PHOS/metFORMIN HCL [Janumet 50-1,000 mg Tablet] 1 each PO BID 08/25/21 Cholecalciferol [Vitamin D3 (25 Mcg = 1000 Iu)] 25 mcg PO DAILY 09/13/21 Ezetimibe [Zetia] 10 mg PO HS 09/13/21 HYDROcodone/APAP 5-325MG [[place] 5-325] 1 tab PO TID PRN 09/13/21 Acetaminophen Tab [Tylenol Tab] 1,000 mg PO DIRECTED PRN 10/04/21 Acetaminophen/Diphenhydramine [Tylenol Pm Ex-Strength Caplet] 1 - 2 tab PO HS PRN 10/04/21
== END | disposition home or self-care (01) ==
LOC: PNWHC3 08:55
PROVIDERS: ATTEND Physician Assistant Medical
DX: M47.896 Other spondylosis, lumbar region (principal); M51.36 Other intervertebral disc degeneration, lumbar region
CPT/HCPCS: 99211

== ENCOUNTER → 2022-04-23 | Outpatient (CLI) | payer MEDICARE, OTHER ==
--- NOTE | 2022-04-23 14:30 | XR ---
EXAMINATION TYPE: XR chest 2V DATE OF EXAM: 04/23/2022 2:19 PM COMPARISON: None TECHNIQUE: XR chest 2V Frontal and lateral views of the chest. CLINICAL INDICATION:Female, 76 years old with history of PRE SURGICAL TESTING; FINDINGS: Lungs/Pleura: There is no evidence of pleural effusion, focal consolidation, or pneumothorax. Pulmonary vascularity: Unremarkable. Heart/mediastinum: Cardiomediastinal silhouette is unremarkable. Atherosclerotic calcifications are seen in the aorta. Musculoskeletal: Multiple level degenerative disc disease changes seen throughout the spine. Other: Vascular stent overlies the superior mediastinum on the left. IMPRESSION: No acute cardiopulmonary disease/process.
[2022-04-23 15:02] LABS: INR 0.9 (<1.2); Partial Thromboplastin Time 23.3 sec (22.0-30.0); Prothrombin Time 9.8 sec (9.0-12.0)
[2022-04-23 18:16] LABS: Basophils # (A) 0.07 X 10*3/uL (0.00-0.10); Basophils % (A) 0.6 %; Eosinophils # (A) 0.23 X 10*3/uL (0.04-0.35); Eosinophils % (A) 1.9 %; HCT 38.9 % (37.2-46.3); HGB 12.7 g/dL (12.0-15.0); Immature Grans, Automated 0.5 %; Lymphocytes # (A) 3.71 X 10*3/uL (0.90-5.00); Lymphocytes % (A) 30.1 %; MCH 30.3 pg (27.0-32.0); MCHC 32.6 g/dL (32.0-37.0); MCV 92.8 fL (80.0-97.0); Mean Platelet Volume 10.4 fL (9.5-12.2); Monocytes # (A) 1.01 X 10*3/uL (0.20-1.00); Monocytes % (A) 8.2 %; NRBC Per 100 WBC 0 /100 WBCS (0.0-0.0); Neutrophils # (A) 7.23 X 10*3/uL (1.80-7.70); Neutrophils % (A) 58.7 %; Platelet Count 308 X 10*3/uL (140-440); RBC 4.19 X 10*6/uL (4.10-5.20); RDW 12.7 % (11.5-14.5); WBC 12.31 X 10*3/uL (4.50-10.00)
[2022-04-23 18:45] LABS: African American GFR (CKD) 62.3 (60.0-200.0); Albumin 4.4 g/dL (3.8-4.9); Albumin/Globulin Ratio 2.4 (1.60-3.17); Anion Gap 10.7 mmol/L (10.00-18.00); BUN/Creat Ratio 20.29 Ratio (12.00-20.00); Blood Urea Nitrogen 20.7 mg/dL (9.0-27.0); Calcium 9.4 mg/dL (8.7-10.3); Carbon Dioxide 25.2 mmol/L (20.0-27.5); Globulin 1.8 g/dL (1.6-3.3); Non-African American GFR(CKD) 53.8 (60.0-200.0); Potassium 5.1 mmol/L (3.5-5.5); Total Bilirubin 0.2 mg/dL (0.30-1.20); Total Protein 6.2 g/dL (6.2-8.2)
[2022-04-23 23:52] LABS: Appearance,Urine Clear (Clear); Bilirubin,Urine Negative (Negative); Blood,Urine Negative (Negative); Color,Urine Yellow (Yellow); Ketones,Urine Trace mg/dL (Negative); Nitrite,Urine Negative (Negative); PH, Urine 5.5 (5.0-8.0); Specific Gravity,Urine 1.025 (1.001-1.030); Urobilinogen,Urine 0.2 (0.2,1.0)
== END | disposition home or self-care (01) ==
LOC: LABPAT 12:28
PROVIDERS: ATTEND Orthopaedic Surgery Orthopaedic Surgery of the Spine
DX: Z01.812 Encounter for preprocedural laboratory examination (principal); Z01.818 Encounter for other preprocedural examination; M48.061 Spinal stenosis, lumbar region without neurogenic claudication
CPT/HCPCS: 71046; 80053; 81003; 85025; 85610; 85730; 87070; 93005

== ENCOUNTER 2022-05-02 07:18 | Day surgery (SDC) | payer MEDICARE, OTHER ==
[2022-04-27 16:54] VITALS: BMI 28.2
[~2022-05-02 07:18] MED LIST changes: -IV FLUID CONTINUATION 1,000 ML IV ONE; -LACTATED RINGERS 1,000 ML IV SCH; -MIDAZOLAM 2 MG/2 ML VIAL ONE; -ROPIVACAINE 5MG/ML 20ML VIAL ONE; +ceFAZolin 1,000 MG in SODIUM CHLORIDE 0.9% IRRIGATIO 1,000 ML IRRIGATION PRN; -fentaNYL (PF) 50 MCG/ML 2 ML AMP ONE; -methylPREDNISolone ACETATE 40 MG/ML 1 ML VIAL ONE
[2022-05-02] MEDS ORDERED: ONDANSETRON 4 MG/2 ML VIAL IVP ONE (07:29)
[2022-05-02] MEDS ORDERED: HYDROmorphone 0.5 MG/0.5 ML SYRINGE IVP PRN (07:29)
[2022-05-02] MEDS ORDERED: LACTATED RINGERS 1,000 ML IV SCH (07:29)
[2022-05-02] MEDS ORDERED: DEXAMETHASONE SOD PHOSPHATE 4 MG/ML 1 ML VIAL IV ONE (07:29)
[2022-05-02] MEDS ORDERED: LIDOCAINE 2% INJ 20 MG/ML (2 ML VIAL) ONE (08:30)
[2022-05-02] MEDS ORDERED: MIDAZOLAM 2 MG/2 ML VIAL ONE (08:30)
[2022-05-02] MEDS ORDERED: ROCURONIUM 10 MG/ML (5 ML VIAL) IV ONE (08:30)
[2022-05-02] MEDS ORDERED: HYDROmorphone (PF) 1 MG/ML ONE (08:30)
[2022-05-02] MEDS ORDERED: PROPOFOL 10 MG/ML 20 ML VIAL IV ONE (08:30)
[2022-05-02] MEDS ORDERED: SUCCINYLCHOLINE CHLORIDE 200 MG/10 ML VIAL IV ONE (08:30)
[2022-05-02] MEDS ORDERED: NEOSTIGMINE 1 MG/ML 10 ML VIAL ONE (08:30)
[2022-05-02] MEDS ORDERED: fentaNYL (PF) 50 MCG/ML 2 ML AMP ONE (08:30)
[2022-05-02] MEDS ORDERED: ePHEDrine 50 MG/ML 1 ML VIAL ONE (08:30)
[2022-05-02] MEDS ORDERED: GLYCOPYRROLATE 0.2 MG/ML 2 ML VIAL ONE (08:30)
[2022-05-02] MEDS ORDERED: ONDANSETRON 4 MG/2 ML VIAL ONE (08:30)
[2022-05-02 08:35] LABS: Glucose,Whole Blood 99 mg/dL (70-110)
[2022-05-02 08:51] LABS: Calcium 8.9 mg/dL (8.4-10.2)
[2022-05-02 08:53] LABS: Potassium 5.2 mmol/L (3.5-5.1)
[2022-05-02] MEDS ORDERED: GELATIN SPONGE,ABSORB (LARGE) 1 EACH SPONGE TOPICAL ONE (09:14)
[2022-05-02] MEDS ORDERED: THROMBIN (BOVINE) 5,000 UNIT VIAL TOPICAL ONE (09:27)
[2022-05-02] MEDS ORDERED: BUPIVACAIN-EPI 0.25%-1:200,000 30 ML VIAL SQ ONE (09:31)
[2022-05-02] MEDS ORDERED: LACTATED RINGERS 1,000 ML IV ONE ×2 (10:00)
--- NOTE | 2022-05-02 11:39 | FL ---
Fluoroscopy History: LUMBAR STENOSIS LUMBAR STENOSIS, FLUORO TIME: 27 SECS
[2022-05-02] MEDS ORDERED: ONDANSETRON 4 MG/2 ML VIAL IVP PRN (11:49)
[2022-05-02] MEDS ORDERED: MAGNESIUM HYDROXIDE 2,400 MG/10 ML CUP PO PRN (11:49)
[2022-05-02] MEDS ORDERED: BENZOCAINE/MENTHOL LOZENG 1 EACH LOZENGE MUCOUS MEM PRN (11:49)
[2022-05-02] MEDS ORDERED: ACETAMINOPHEN TAB 500 MG TAB PO PRN (11:53)
[2022-05-02] MEDS ORDERED: ONDANSETRON 4 MG TAB PO PRN (11:53)
[2022-05-02] MEDS ORDERED: HYDROcodone/APAP 5-325MG 1 EACH TAB PO PRN (11:53)
--- NOTE | 2022-05-02 11:59 | P.OP ---
Date of Procedure: 05/02/22 Preoperative Diagnosis: Spondylolisthesis L4 5, severe spinal stenosis L4 5, lower extremity radiculopathy, degenerative disc disease, degenerative scoliosis, low back pain, facet arthrosis Postoperative Diagnosis: Same Anesthesia: GETA Pathology: none sent Condition: stable Disposition: PACU Description of Procedure: DESCRIPTION OF PROCEDURE(S): BRIEF OPERATIVE NOTE Preoperative Diagnosis: Spondylolisthesis L4 5, severe spinal stenosis L4 5, lower extremity radiculopathy, degenerative disc disease, degenerative scoliosis, low back pain, facet arthrosis Postoperative Diagnosis: Same Procedure: Laminectomy and decompression L4 [address] navigation aided Minimally invasive Posterior lateral decompression and fusion for L4 5 Minimally invasive Transforaminal lumbar interbody fusion for a 360 fusion for L4 5 Discectomy for decompression L4 5 Placement of interbody graft L4 5 Use of computer navigation for fusion Local autogenous bone grafting Aspiration of bone marrow from the vertebral body pedicle at L4 on the right Use of bone graft extenders Surgeon: Dr. Machuca Slitting Machine Feeder: Jerry YING who is present throughout the entire the case persistence during positioning, dissection, exposure, visualization, and all crucial elements of the case as well as closure. Anesthesia: General anesthesia per Estimated blood loss: Approximately 300 mL Complications: None apparent Components implanted: K2M minimally invasive [place] pedicle screw system withscrews measuring 6.5 mm in diameter to rods one Elma interbody cage with 10 mL of osteo amp bio4 bone graft substitute and 30 mL of the BX bone fibers to supplement the local autogenous bone graft and bone marrow aspirate Disposition: To recovery room in good stable condition. OPERATIVE INDICATIONS The patient has had severe issues at their lower extremity in her lower back over the past several years with significant worsening over the past several months. Over the past few months the patient had pain at their back and their lower extremities. The patient is having severe radicular symptoms at their lower extremity with weakness. The patient is having significant pain in their back. They are unable to obtain any comfort. We did aggressive conservative treatment with medications therapy and interventional pain management however thery were not having any relief. The patient also showed evidence of a listhesis grade 2 with some dynamic instability at L4 5. The patient has been through conservative treatment. We discussed various treatment options including surgery, and the patient wishes to proceed with surgery We discussed the risk, patient's alternatives and benefits of surgery including but not limited to, risk of bleeding risk of infection, risk of need for further surgery, risk of decreased, loss of motion, muscle function, malunion nonunion, hardware failure, nerve damage, paralysis, heart attack, blindness and . They understood issues with the current pandemic and the possibility of exp osure. OPERATIVE SUMMARY After discussing all the risks, patient alternatives and benefits at length, the patient elected to proceed with surgical intervention, signed informed consent, and presented for their procedure. The patient was seen and examined in the preoperative holding area and the surgical site was marked. The patient was given antibiotics and brought to the operating room. The patient was sedated and intubated by anesthesia in standard fashion. The patient was positioned on to the operating room table in a prone position on the appropriate frame which was well-padded and well molded. We were careful to pad any bony prominences and pressure points. We were careful to maintain the patient's cervical spine and good neutral alignment and position throughout. The patient was prepped and draped in a normal standard fashion. An appropriate timeout and keystone protocol performed. We were able to proceed with the surgery. The local wound area was infiltrated with local anesthetic. Over the right iliac crest I was able to make small stab incisions and establish a guidepin screw fixation to the iliac crest 2. I was able place the computer referencing device over the guidepins to establish an appropriate reference point for the Ziem CT navigation. We then were able to place patient in an appropriate drape and do a navigation spin for visualization and 3-D re construction of the lumbar spine. I was able utilize C-arm guidance and navigation to establish appropriate position over the pedicles bilaterally at the appropriate levels . With the appropriate levels confirmed was able to make small incisions over the appropriate pedicle sites bilaterally. Utilizing the computer navigation device I was able to establish bony landmarks at the right iliac crest for a bony reference point for the navigation device. I was able to establish a Jamshidi needle over the lateral aspect of the pedicle and advanced the trocar into the pedicle being careful not to breech superiorly inferiorly medially or laterally using computer navigation device. Position was confirmed regularly with AP and lateral images on C-arm and with the computer navigation device at the appropriate levels bilaterally. I was able to establish the trocar into the pedicle appropriately into the posterior aspect of the vertebral body bilaterally at the appropriate levels. This was done at each of the pedicle positions and each of the vertebrae. At the superior vertebrae at L4 on the right I was able to take approximately 10 mL of bone aspiration for use later in the case to supplement the allograft and autograft bone. I was able place the guidewire into the trocar and into the vertebral body appropriately under C-arm guidance. Dissection was taken down over the wire to the appropriate starting position for the screw placed. The appropriate length screw was chosen, threaded over the guidewire and screwed appropriately into the pedicle and vertebral body under C-arm guidance in excellent alignment and position with good bony purchase. This is done at each of the screw sites at the appropriate levels at L4 and L5 bilaterally. With the screws intact I extended the incision to connect the screw hole sites on the most symptomatic side on the right at L4 5. I dissected down to establish access over the pars and lamina to the base of the spinous process. I was able to expose the facet joint. The capsule the facet was taken down and showed some facet arthrosis at the joint. I was able to use a combination of curettes and Kerrison rongeurs and a high-speed drill to take down the facet joint and do a facetectomy. Note was made of the listhesis the cyst and lysis. I was able get excellent foraminal decompression and central decompression with undermining across midline to perform a laminectomy centrally and contralaterally. I was able get good central decompression. The ligamentum flavum was taken down to further decompress centrally and at bilateral neural foramen. I was able to expose the disc space and visualize the traversing nerve root. Note was made of some disc protrusion and disc herniation that was abutting the traversing nerve root at the level causing further compression of the nerve root. I was able to establish a annulotomy at the appropriate level protecting soft tissue and neural structures. Note was made of some disc rosas iccation at the disc. I performed a complete discectomy with accommodation of curettes and rasps and scrapers. I was able get good endplate preparation at the disc space. I sized for the appropriate size interbody spacer protecting the soft tissue and neural structures. The wound was copiously irrigated and suctioned dry. There is no evidence of any dural tear or leak. I was able to pack the disc space with local autogenous bone graft as well as a small amount of bone graft which was also placed into the interbody cage itself. Protecting the soft tissue structures and neural structures I was able place the interbody cage in good alignment and good position with good fit and fill at the interbody space. Position was confirmed with C-arm guidance. Good hemostasis maintained. There is no evidence of any dural tear or leak. The wound was irrigated and suctioned dry. With the hardware intact, intraoperative C-arm imaging was again taken which showed good alignment and position of the hardware at the appropriate levels at L4 5. We were then able to measure, contour and place the rods and appropriate hardware bilaterally. I was able to place capcrews, tighten them down, and torque them with the torque screwdriver appropriately. With this intact I was able to place the local autogenous bone graft with additional bone graft enhancer as necessary into the posterior lateral gutters over the decorticated transverse processes and facet joints on the contralateral side. The remainder of the bone graft was placed over the facet joint on the contralateral side after taking down the facet joint capsule. With the bone graft intact, a stable construct, and good decompression at the appropriate levels, we were able to proceed with closure. Good hemostasis was maintained. There is no evidence of dural tear or leak. The fascia was closed for a watertight closure. he subcuticular tissue was closed with absorbable suture. The wound was cleaned and dried and dressed with the appropriate dressing. The drapes were broken down. The patient was gently rolled back onto their hospital bed being careful to maintain their cervical spine and good neutral alignment and position. They were woken up by anesthesia, extubated, and brought to the recovery room in good stable condition. The patient will be admitted to the hospital for appropriate postoperative care, medical management and monitoring. We will continue to follow them closely about the postoperative course.
[2022-05-02] MEDS ORDERED: CYANOCOBALAMIN 500 MCG TAB PO SCH (12:00)
[2022-05-02] MEDS ORDERED: SODIUM CHLORIDE 0.9% 1,000 ML IV ONE ×2 (12:45)
[2022-05-02] MEDS ORDERED: diphenhydrAMINE 25 MG CAP PO PRN (12:53)
[2022-05-02 12:54] VITALS: RESP 16
--- NOTE | 2022-05-02 15:38 | P.CONS ---
History of Present Illness - History of Present Illness this is a pleasant 76 yo F with past medical history of hypertension, hyperl ipidemia, diabetes mellitus, hypothyroidism, chronic back pain as well as osteoarthritis. Patient has sustained low back injury and compression of fracture of L2 and L4 about 1 ago that's been successfully treatment locally with epidural injection 10 4 however patient has recurrent of pain that caused her problem and difficult and mobility. With some evidence of spinal stenosis, she's been evaluated by surgical team and she underwent decompression surgery and fusion procedure of her lumbar spine today. She is status post posterior lumbar decompression fusion transforaminal lumbar interbody fusion L4-L5. Today is postoperative day #0. Patient seen and evaluated in the extended stay unit, she was awake alert but lethargic, she was still complaining of from low back pain 8/10 going to both lower extremity. She denies chest pain or dyspnea, no abdominal pain or diarrhea, she denies any diarrhea or urinary complaints. She has a Mohan catheter with clear urine She's been complained from nausea Patient vitals are stable. Labs showing sodium 136, potassium slightly high 5.2 but hemolyzed. Creatinine normal 0.8. Review of Systems Review of systems CONSTITUTIONAL: No fever, no malaise, no fatigue. HEENT: No recent visual problems or hearing problems. Denied any sore throat. CARDIOVASCULAR: No orthopnea, PND, no palpitations, no syncope. PULMONARY: No shortness of breath, no cough, no hemoptysis. GASTROINTESTINAL: No diarrhea, no nausea, no vomiting, no abdominal pain. Normoactive bowel sounds. NEUROLOGICAL: No headaches, no weakness, no numbness. HEMATOLOGICAL: Denies any bleeding or petechiae. GENITOURINARY: Denies any burning micturition, frequency, or urgency. -MUSCULOSKELETAL/RHEUMATOLOGICAL: As above ENDOCRINE: Denies any polyuria or polydipsia. Past Medical History Past Medical History: Blood Disorder, Cancer, Diabetes Mellitus, GERD/Reflux, Hyperlipidemia, Hypertension, Musculoskeletal Disorder, Osteoarthritis (OA), Renal Disease, Thyroid Disorder Additional Past Medical History / Comment(s): HX CERVICAL CANCER. HX ELEVATED WBC-WATCHING FOR CLL., HX OF STAGE 3 KIDNEY DISEASE CAUSED BY CELEBREX - STATES NOW STAGE 2., Hx diverticultitis. RLS., SMALL HIATAL HERNIA., POLYMYALGIA, LEG CRAMPS., BACK PAIN, OCCASIONAL NAUSEA AND VOMITING IN AM-ZOFRAN PRN. History of Any Multi-Drug Resistant Organisms: None Reported Past Surgical History: Adenoidectomy, Bladder Surgery, Heart Catheterization, Hysterectomy, Joint Replacement, Orthopedic Surgery, Tonsillectomy, Tubal Ligation Additional Past Surgical History / Comment(s): Kidney stone removal, TRIGGER THUMB PETRONA, EYELIDS LIFTED, bilateral cataracts with lenses implants, bilateral knee arthroscopies, left knee and left hip replacements, partial thyroidectomy, 1 stent in left subclavian (2016), bilateral carpal tunnel surgery, right finger cyst removed, many epidurals in back, bilateral hip cortisone shots., bladder suspension. Past Anesthesia/Blood Transfusion Reactions: Previous Problems w/ Anesthesia Additional Past Anesthesia/Blood Transfusion Reaction / Comm: YEARS AGO HAD HARD TIME AWAKENING FROM SURGERY FOR HYSTERECTOMY Past Psychological History: Anxiety, Depression Additional Psychological History / Comment(s): IN PAST R/T LOSS OF SON YEARS AGO. Smoking Status: Former smoker Past Alcohol Use History: None Reported Additional Past Alcohol Use History / Comment(s): QUIT SMOKING 2 1/2 WEEKS AGO., SMOKED ON/OFF OVER 30 YEARS, UP TO 1 1/2 PPD Past Drug Use History: None Reported - Past Family History Mother Family Medical History: Dementia, Musculoskeletal Disorder, Pulmonary Embolus Additional Family Medical History / Comment(s): Spinal stenosis. Parkinsons. Father Family Medical History: CVA/TIA, Diabetes Mellitus, Hypertension, Myocardial Infarction ([place]) Additional Family Medical History / Comment(s): Aortic aneurysm. Alzheimers. Medications and Allergies Home Medications Medication Instructions Recorded Confirmed Type Atorvastatin Calcium [Lipitor] 40 mg PO HS 07/21/14 05/02/22 History Magnesium Oxide 800 mg PO HS 07/21/14 05/02/22 History Metoprolol Succinate (ER) [Toprol 25 mg PO DAILY 07/21/14 05/02/22 History XL] Levothyroxine Sodium [Synthroid] 25 mcg PO EUCEDA 07/26/14 05/02/22 History Aspirin EC [Ecotrin Low Dose] 81 mg PO DAILY 11/12/17 05/02/22 History Biotin [Biotin Disolve] 10,000 mcg PO DAILY 11/12/17 05/02/22 History Cyanocobalamin (Vitamin B-12) 1,000 mcg PO MOWEFR 11/12/17 05/02/22 History [Vitamin B-12] Levothyroxine Sodium [Synthroid] 50 mcg PO MOTUWETHFRSA 11/12/17 05/02/22 History Multivit-Min/FA/Lycopen/Lutein 1 tab PO HS 11/12/17 05/02/22 History [Centrum Silver Tablet] Ubidecarenone [Co Q-10] 200 mg PO DAILY 11/12/17 05/02/22 History Esomeprazole Magnesium 20 mg PO DAILY 08/25/21 05/02/22 History rOPINIRole HCL [Requip] 4 mg PO HS 08/25/21 05/02/22 History sitaGLIPtin PHOS/metFORMIN HCL 1 each PO BID 08/25/21 05/02/22 History [Janumet 50-1,000 mg Tablet] Cholecalciferol [Vitamin D3 (25 25 mcg PO DAILY 09/13/21 05/02/22 History Mcg = 1000 Iu)] Ezetimibe [Zetia] 10 mg PO HS 09/13/21 05/02/22 History HYDROcodone/APAP 5-325MG [[place] 1 tab PO ONCE PRN 09/13/21 05/02/22 History 5-325] Acetaminophen/Diphenhydramine 1 - 2 tab PO HS PRN 10/04/21 05/02/22 History [Tylenol Pm Ex-Strength Caplet] Ondansetron [Zofran] 4 mg PO Q8HR PRN 04/27/22 05/02/22 History Allergies Allergy/AdvReac Type Severity Reaction Status Date / Time NSAIDS (Non-Steroidal AdvReac Unknown STATES NO Verified 05/02/22 07:58 Anti-Inflamma NSAIDS D/T KIDNEY DISEASE NASAL CANNULA AdvReac NASAL Uncoded 05/02/22 07:58 DRAINAGE Physical Exam Vitals: Vital Signs Temp Pulse Pulse Resp BP BP Pulse Ox 05/02/22 12:20 63 18 134/69 100 05/02/22 12:05 68 16 116/58 100 05/02/22 11:49 97.2 F L 67 16 137/89 100 05/02/22 08:10 97.0 F L 70 15 161/72 98 Intake and Output 05/01/22 05/02/22 05/02/22 22:59 06:59 14:59 Intake Total 1551 Output Total 590 Balance 961 Intake: IV 1551 Output: Urine 290 Estimated Blood Loss 300 Other: Weight 74.2 kg GENERAL: The patient is alert and oriented x3, not in any acute distress. Well developed, well nourished. HEENT: Pupils are round and equally reacting to light. EOMI. No scleral icterus. No conjunctival pallor. Normocephalic, atraumatic. No pharyngeal erythema. No thyromegaly. CARDIOVASCULAR: S1 and S2 present. No murmurs, rubs, or gallops. PULMONARY: Chest is clear to auscultation, no wheezing or crackles. ABDOMEN: Soft, nontender, nondistended, normoactive bowel sounds. No palpable organomegaly. MUSCULOSKELETAL: No joint swelling or deformity. -EXTREMITIES: No cyanosis, clubbing, or pedal edema. Lower back surgical wound, dressing in place. Rest of exam is deferred to surgery team NEUROLOGICAL: Gross neurological examination did not reveal any focal deficits. SKIN: No rashes. no petechiae. Results CBC & Chem 7: 05/02/22 08:22 Labs: Abnormal Lab Results - Last 24 Hours (Table) 05/02/22 Range/Units 08:22 Sodium 136 L (137-145) mmol/L Potassium 5.2 H (3.5-5.1) mmol/L Carbon Dioxide 21 L (22-30) mmol/L BUN 21 H (7-17) mg/dL Assessment and Plan Assessment: Lumbar spinal stenosis with history of compression of fracture of L2 and L4 status post lumbar decompression fusion transforaminal lumbar interbody fusion L4-L5 Diabetes mellitus Hypertension Hyperlipidemia Overweight History of restless leg syndrome Plan: This is a pleasant 76 years old female status post decompression of lumbar surgery. Continue with pain management and DVT prophylaxis per primary team Monitor sugar and blood pressure closely. Check hemoglobin A1c. We will continue following with the patient and further recommendation based on her clinical progress GI prophylaxis: Pepcid DVT prophylaxis: Deferred to surgery team Thank you for consulting us
[2022-05-02] MEDS: LEVOTHYROXINE 50 MCG TAB PO SCH (16:40)
[2022-05-02] MEDS: HYDROmorphone 0.5 MG/0.5 ML SYRINGE IVP PRN (16:50)
[2022-05-02] MEDS: SODIUM CHLORIDE 0.9% 1,000 ML IV SCH ×2 (16:53→23:58)
[2022-05-02 16:54] LABS: Glucose,Whole Blood 155 mg/dL (70-110)
[2022-05-02] MEDS: EZETIMIBE 10 MG TAB PO SCH (20:41)
[2022-05-02] MEDS: diphenhydrAMINE 25 MG CAP PO PRN (20:41)
[2022-05-02] MEDS: MULTIVITAMINS, THERA 1 EACH TAB PO SCH (20:41)
[2022-05-02] MEDS: metFORMIN 500 MG TAB PO SCH (20:41)
[2022-05-02] MEDS: HYDROcodone/APAP 5-325MG 1 EACH TAB PO PRN (20:41)
[2022-05-02] MEDS: MAGNESIUM OXIDE 400 MG TAB PO SCH (20:41)
[2022-05-02] MEDS: ATORVASTATIN 40 MG TAB PO SCH (20:42)
[2022-05-02] MEDS: LINAGLIPTIN 5 MG TABLET PO SCH (20:43)
[2022-05-02] MEDS: rOPINIRole HCL 4 MG TABLET PO SCH (20:43)
[2022-05-03] MEDS: HYDROmorphone 0.5 MG/0.5 ML SYRINGE IVP PRN ×2 (01:15→20:15)
[2022-05-03] MEDS: LEVOTHYROXINE 50 MCG TAB PO SCH (07:31)
[2022-05-03] MEDS: PANTOPRAZOLE 40 MG TABLET PO SCH (07:31)
[2022-05-03] MEDS: CYCLOBENZAPRINE 5 MG TAB PO PRN ×3 (07:40→20:09)
[2022-05-03] MEDS: ASPIRIN 81 MG PO SCH (07:42)
[2022-05-03] MEDS: METOPROLOL SUCCINATE (ER) 25 MG TAB.ER.24H PO SCH (07:43)
[2022-05-03] MEDS: metFORMIN 500 MG TAB PO SCH ×2 (07:43→20:10)
[2022-05-03] MEDS: CHOLECALCIFEROL 25 MCG (1000 IU) TABLET PO SCH (07:43)
[2022-05-03] MEDS: LINAGLIPTIN 5 MG TABLET PO SCH ×2 (07:43→20:10)
[2022-05-03] MEDS: SENNOSIDES-DOCUSATE SODIUM 1 EACH TAB PO SCH (07:43)
[2022-05-03] MEDS: HYDROcodone/APAP 5-325MG 1 EACH TAB PO PRN ×3 (08:24→17:37)
[2022-05-03] MEDS ORDERED: NON FORMULARY DRUG (Biotin [Biotin Disolve] 5,000 MCG Tab.Rapdis) PO SCH (09:00)
[2022-05-03] MEDS ORDERED: NON FORMULARY DRUG (Ubidecarenone [Co Q-10] 100 MG Capsule) PO SCH (09:00)
--- NOTE | 2022-05-03 09:01 | P.PN ---
Progress Note - Text Progress Note Date: 05/03/22 Postoperative day #1 Patient is seen and examined today at bedside. The patient has some pain around the surgical site as expected. Pain is being controlled with medication. She is having spasms in her legs posteriorly which had occurred prior to his surgery but she feels she will be able to start mobilizing with physical therapy. She was able to get out of bed a number of instances so that she could void. She denies any nausea or vomiting. Physical Exam Afebrile with stable vital signs Abdomen is soft nontender. Chest has good excursion deep and space expiration The incision site is clean dry and intact. No erythema there is no purulence. Extremities have not had neurologic change from prior to surgery. She has sustained dorsal to plantar flexion and EHL intact. Calves and thighs were soft nontender without evidence of DVT. Assessment/Plan Postoperative day #1 status post minimally invasive decompression fusion for spondylolisthesis with spinal stenosis and lower extremity radiculopathy Patient is progressing as expected from the surgery. She is making good progres s with her mobility and her pain control and hopefully she'll be able to be discharged home tomorrow. We will continue to increase the patient's mobilization with therapy. We will continue pain control with oral or IV medications. She says she has plenty of oral medications and pain medicine at home so she'll not need a new prescription We'll continue to follow patient closely.
[2022-05-03 09:07] LABS: HCT 30.8 % (37.2-46.3); HGB 10.4 g/dL (12.0-15.0); MCH 30.4 pg (27.0-32.0); MCHC 33.8 g/dL (32.0-37.0); MCV 90.1 fL (80.0-97.0); Mean Platelet Volume 10.1 fL (9.5-12.2); NRBC Per 100 WBC 0 /100 WBCS (0.0-0.0); Platelet Count 275 X 10*3/uL (140-440); RBC 3.42 X 10*6/uL (4.10-5.20); RDW 12.9 % (11.5-14.5)
[2022-05-03 09:29] LABS: African American GFR (CKD) 63.8 (60.0-200.0); Anion Gap 12.4 mmol/L (10.00-18.00); BUN/Creat Ratio 15.3 Ratio (12.00-20.00); Blood Urea Nitrogen 15.3 mg/dL (9.0-27.0); Calcium 8.7 mg/dL (8.7-10.3); Carbon Dioxide 22.6 mmol/L (20.0-27.5); Magnesium 1.8 mg/dL (1.5-2.4); Non-African American GFR(CKD) 55.1 (60.0-200.0); Potassium 4.4 mmol/L (3.5-5.5)
[2022-05-03 10:01] LABS: Basophils # (A) 0.05 X 10*3/uL (0.00-0.10); Basophils % (A) 0.3 %; Eosinophils # (A) 0.01 X 10*3/uL (0.04-0.35); Eosinophils % (A) 0.1 %; Immature Grans, Automated 0.5 %; Lymphocytes % (A) 15.7 %; Monocytes # (A) 1.75 X 10*3/uL (0.20-1.00); Monocytes % (A) 10.2 %; Neutrophils # (A) 12.61 X 10*3/uL (1.80-7.70); Neutrophils % (A) 73.2 %
[2022-05-03 11:45] LABS: Glucose,Whole Blood 137 mg/dL (70-110)
--- NOTE | 2022-05-03 16:37 | P.PN ---
Subjective this is a pleasant 76 yo F with past medical history of hypertension, hyperlipidemia, diabetes mellitus, hypothyroidism, chronic back pain as well as osteoarthritis. Patient has sustained low back injury and compression of fracture of L2 and L4 about 1 ago that's been successfully treatment locally with epidural injection 10 4 however patient has recurrent of pain that caused her problem and difficult and mobility. With some evidence of spinal stenosis, she's been evaluated by surgical team and she underwent decompression surgery and fusion procedure of her lumbar spine today. She is status post posterior lumbar decompression fusion transforaminal lumbar interbody fusion L4-L5. Today is postoperative day #0. Patient seen and evaluated in the extended stay unit, she was awake alert but lethargic, she was still complaining of from low back pain 8/10 going to both lower extremity. She denies chest pain or dyspnea, no abdominal pain or diarrhea, she denies any diarrhea or urinary complaints. She has a Mohan catheter with clear urine She's been complained from nausea Patient vitals are stable. Labs showing sodium 136, potassium slightly high 5.2 but hemolyzed. Creatinine normal 0.8. 05/03/2022 patient was seen in walking in her room uses a walker with the help of physical therapist. She was doing most of thejobt. It looks pain is controlled Patient overall showing improvement. Vitals are stable. Labs showing potassium 4.4, however creatinine 1.0, but was 0.8 yesterday. Recheck creatinine tomorrow especially patient is on metformin. Glucose is 137-155 Her hemoglobin is 10.4 and WBCs 17,000 most likely reactive from her surgery Hemoglobin A1c 6.3 which looks pretty controlled diabetes. We recommend patient follow up closely as an outpatient including her PCP in one week. Also recommend keep monitoring sugar as an outpatient, written discharge instruction is provided Objective - Vital Signs Vital signs: Vital Signs Temp 98.9 F 05/03/22 12:14 Pulse 92 05/03/22 12:14 Resp 16 05/03/22 12:14 BP 112/68 05/03/22 12:14 Pulse Ox 99 05/03/22 12:14 FiO2 Intake & Output 05/02/22 05/03/22 05/03/22 18:59 06:59 18:59 Intake Total 2126 1200 Output Total 1600 600 Balance 526 600 Weight 74.2 kg Intake: IV 2050 Intake, IV Titration 75 Amount Sodium Chloride 0.9% 1, 75 000 ml @ 75 mls/hr IV . [id number] [facility] Rx#:[id number] Oral 1200 Output: Urine 1300 600 Uretheral (Mohan) 900 Estimated Blood Loss 300 Other: Voiding Method Toilet # Voids 2 - Exam GENERAL: The patient is alert and oriented x3, not in any acute distress. Well developed, well nourished. HEENT: Pupils are round and equally reacting to light. EOMI. No scleral icterus. No conjunctival pallor. Normocephalic, atraumatic. No pharyngeal erythema. No thyromegaly. CARDIOVASCULAR: S1 and S2 present. No murmurs, rubs, or gallops. PULMONARY: Chest is clear to auscultation, no wheezing or crackles. ABDOMEN: Soft, nontender, nondistended, normoactive bowel sounds. No palpable organomegaly. MUSCULOSKELETAL: No joint swelling or deformity. -EXTREMITIES: No cyanosis, clubbing, or pedal edema. Lower back surgical wound, dressing in place. Rest of exam is deferred to surgery team NEUROLOGICAL: Gross neurological examination did not reveal any focal deficits. SKIN: No rashes. no petechiae. Gait: Walking using her walker with the help of PT person - Labs CBC & Chem 7: 05/03/22 05:19 05/03/22 05:19 Labs: Abnormal Lab Results - Last 24 Hours (Table) 05/02/22 05/03/22 05/03/22 Range/Units 16:53 05:19 05:19 WBC 17.20 H (4.50-10.00) X 10*3/uL RBC 3.42 L (4.10-5.20) X 10*6/uL Hgb 10.4 L (12.0-15.0) g/dL Hct 30.8 L (37.2-46.3) % Immature Gran # 0.08 H (0.00-0.04) X 10*3/uL Neutrophils # 12.61 H (1.80-7.70) X 10*3/uL Monocytes # 1.75 H (0.20-1.00) X 10*3/uL Eosinophils # 0.01 L (0.04-0.35) X 10*3/uL Est GFR (CKD-EPI)NonAf (60.0-200.0) POC Glucose (mg/dL) 155 H (70-110) mg/dL Hemoglobin A1c 6.3 H (0.0-6.0) % 05/03/22 05/03/22 Range/Units 05:19 11:43 WBC (4.50-10.00) X 10*3/uL RBC (4.10-5.20) X 10*6/uL Hgb (12.0-15.0) g/dL Hct (37.2-46.3) % Immature Gran # (0.00-0.04) X 10*3/uL Neutrophils # (1.80-7.70) X 10*3/uL Monocytes # (0.20-1.00) X 10*3/uL Eosinophils # (0.04-0.35) X 10*3/uL Est GFR (CKD-EPI)NonAf 55.1 L (60.0-200.0) POC Glucose (mg/dL) 137 H (70-110) mg/dL Hemoglobin A1c (0.0-6.0) % Assessment and Plan Assessment: Lumbar spinal stenosis with history of compression of fracture of L2 and L4 status post lumbar decompression fusion transforaminal lumbar interbody fusion L4-L5 Diabetes mellitus Hypertension Hyperlipidemia Overweight History of restless leg syndrome Plan: This is a pleasant 76 years old female status post decompression of lumbar surgery. Continue with pain management and DVT prophylaxis per primary team Monitor sugar and blood pressure closely. Monitor labs tomorrow We will continue following with the patient and further recommendation based on her clinical progress GI prophylaxis: Pepcid DVT prophylaxis: Deferred to surgery team Thank you for consulting us
[2022-05-03 17:38] LABS: Glucose,Whole Blood 125 mg/dL (70-110)
[2022-05-03 20:06] LABS: Glucose,Whole Blood 244 mg/dL (70-110)
[2022-05-03] MEDS: diphenhydrAMINE 25 MG CAP PO PRN (20:09)
[2022-05-03] MEDS: ATORVASTATIN 40 MG TAB PO SCH (20:09)
[2022-05-03] MEDS: MULTIVITAMINS, THERA 1 EACH TAB PO SCH (20:09)
[2022-05-03] MEDS: rOPINIRole HCL 4 MG TABLET PO SCH (20:10)
[2022-05-03] MEDS: MAGNESIUM OXIDE 400 MG TAB PO SCH (20:10)
[2022-05-03] MEDS: EZETIMIBE 10 MG TAB PO SCH (20:10)
[2022-05-03] MEDS: SODIUM CHLORIDE 0.9% 1,000 ML IV SCH (20:11)
[2022-05-04] MEDS: LEVOTHYROXINE 50 MCG TAB PO SCH (04:47)
[2022-05-04] MEDS: HYDROcodone/APAP 5-325MG 1 EACH TAB PO PRN ×2 (04:48→10:30)
[2022-05-04 05:10] VITALS: BP 129/68; PULSE 94; TEMP 98.3
[2022-05-04] MEDS: SODIUM CHLORIDE 0.9% 1,000 ML IV SCH (05:14)
[2022-05-04 07:09] LABS: Glucose,Whole Blood 126 mg/dL (70-110)
[2022-05-04] MEDS: metFORMIN 500 MG TAB PO SCH (07:57)
[2022-05-04] MEDS: METOPROLOL SUCCINATE (ER) 25 MG TAB.ER.24H PO SCH (07:57)
[2022-05-04] MEDS: CYCLOBENZAPRINE 5 MG TAB PO PRN (07:57)
[2022-05-04] MEDS: PANTOPRAZOLE 40 MG TABLET PO SCH (07:57)
[2022-05-04] MEDS: ASPIRIN 81 MG PO SCH (07:57)
[2022-05-04] MEDS: SENNOSIDES-DOCUSATE SODIUM 1 EACH TAB PO SCH (07:57)
[2022-05-04] MEDS: CHOLECALCIFEROL 25 MCG (1000 IU) TABLET PO SCH (07:57)
[2022-05-04] MEDS: LINAGLIPTIN 5 MG TABLET PO SCH (07:57)
--- NOTE | 2022-05-04 08:40 | P.DS ---
Providers Date of admission: 05/02/22 07:17 Expected date of discharge: 05/04/22 Attending physician: Agnes Machuca Consults: 05/02/22 11:49 Consult Physician Routine Consulting Provider: Ethan Poole Reason/Comments: Medical management Do you want consulting provider notified?: Yes Primary care physician: Ethan Poole - Discharge Diagnosis(es) (1) Status post lumbar spinal fusion Current Visit: Yes Status: Acute (2) Lumbar spinal stenosis Current Visit: Yes Status: Acute (3) Spondylolisthesis, lumbar region Current Visit: Yes Status: Acute (4) Lumbar back pain with radiculopathy affecting lower extremity Current Visit: Yes Status: Acute (5) Lumbar facet arthropathy Current Visit: Yes Status: Acute (6) Lumbar degenerative disc disease Current Visit: Yes Status: Acute (7) Hypertension Current Visit: Yes Status: Acute (8) Thyroid disease Current Visit: Yes Status: Acute (9) Kidney disease Current Visit: Yes Status: Acute (10) Type 2 diabetes mellitus Current Visit: Yes Status: Acute (11) Unsteady gait Current Visit: Yes Status: Acute Hospital Course: This is a pleasant 76-year-old female who presented with L4-5 spondylolisthesis and severe spinal stenosis, lower extremity radiculopathy, lumbar degenerative disc disease, lumbar degenerative scoliosis, lumbar facet arthrosis, and low back pain who failed outpatient conservative therapy. She admitted for an L4-5 minimally invasive posterior lateral decompression and fusion with transforaminal lumbar interbody fusion. The patient tolerated the procedure well and did well postoperatively. She is ready for discharge today. Condition on day of discharge stable. Patient will be discharged home. Her pain has been well-controlled with oral pain medications per G states she has oral pain medications at home. She does have some muscle spasms in the lower extremities which has been controlled with cyclobenzaprine 5 mg. Patient was cleared preoperatively for surgery by Dr. Poole. Patient currently denies any nausea, vomiting, fever, or chills. Patient is eating and voiding freely without difficulty. Patient may shower Optifoam dressing intact. Patient may remove Optifoam dressing in 3 days and shower without a dressing at that time. Patient should refrain from driving until at least after their first follow-up appointment in the office. Patient should avoid excessive bending, lifting, and twisting; no lifting greater than 10 pounds. Patient may utilize a walker at home to aid in ambulation as needed. She should avoid anti-inflammatory medications over the next 6 weeks postoperatively. Prescription is written for cyclobenzaprine 5 mg one tab 3 times a day as needed for muscle spasm, dispensed #60. Medicine is sent to the [facility] pharmacy located within [facility] per request of the patient. Patient's other medical diagnoses include hypertension, thyroid disease, kidney disease, type 2 diabetes, and unsteady gait. Physical Exam on day of discharge: Status post surgical day number 2 Patient is awake, alert, and oriented 3 Vital signs stable Good chest excursion with deep inspiration and expiration Dorsiflexion, plantarflexion, and extensor hallucis longus positive sustained bilaterally No signs or symptoms of DVT; no calf pain; pneumatic cuffs not currently intact bilateral lower extremities Optifoam dressings are clean, dry, and intact over the lumbar spine and right iliac crest; no erythema, purulence, or signs of infection Neurovascularly intact bilaterally lower extremities Procedures: L4-5 minimally invasive posterior lateral decompression and fusion with transforaminal lumbar interbody fusion Patient Condition at Discharge: Stable Plan - Discharge Summary Discharge Rx Participant: Yes New Discharge Prescriptions: New Cyclobenzaprine [Flexeril] 5 mg PO TID PRN #60 tablet PRN Reason: Muscle Spasm No Action Atorvastatin Calcium [Lipitor] 40 mg PO HS Magnesium Oxide 800 mg PO HS Metoprolol Succinate (ER) [Toprol XL] 25 mg PO DAILY Levothyroxine Sodium [Synthroid] 25 mcg PO EUCEDA Aspirin EC [Ecotrin Low Dose] 81 mg PO DAILY Biotin [Biotin Disolve] 10,000 mcg PO DAILY Cyanocobalamin (Vitamin B-12) [Vitamin B-12] 1,000 mcg PO MOWEFR Levothyroxine Sodium [Synthroid] 50 mcg PO MOTUWETHFRSA Multivit-Min/FA/Lycopen/Lutein [Centrum Silver Tablet] 1 tab PO HS Ubidecarenone [Co Q-10] 200 mg PO DAILY sitaGLIPtin PHOS/metFORMIN HCL [Janumet 50-1,000 mg Tablet] 1 each PO BID rOPINIRole HCL [Requip] 4 mg PO HS Esomeprazole Magnesium 20 mg PO DAILY Ezetimibe [Zetia] 10 mg PO HS Cholecalciferol [Vitamin D3 (25 Mcg = 1000 Iu)] 25 mcg PO DAILY HYDROcodone/APAP 5-325MG [[place] 5-325] 1 tab PO ONCE PRN PRN Reason: Severe Pain Ondansetron [Zofran] 4 mg PO Q8HR PRN PRN Reason: Nausea Acetaminophen/Diphenhydramine [Tylenol Pm Ex-Strength Caplet] 1 - 2 tab PO HS PRN PRN Reason: Insomnia Discharge Medication List Atorvastatin Calcium [Lipitor] 40 mg PO HS 07/21/14 [History] Magnesium Oxide 800 mg PO HS 07/21/14 [History] Metoprolol Succinate (ER) [Toprol XL] 25 mg PO DAILY 07/21/14 [History] Levothyroxine Sodium [Synthroid] 25 mcg PO EUCEDA 07/26/14 [History] Aspirin EC [Ecotrin Low Dose] 81 mg PO DAILY 11/12/17 [History] Biotin [Biotin Disolve] 10,000 mcg PO DAILY 11/12/17 [History] Cyanocobalamin (Vitamin B-12) [Vitamin B-12] 1,000 mcg PO MOWEFR 11/12/17 [History] Levothyroxine Sodium [Synthroid] 50 mcg PO MOTUWETHFRSA 11/12/17 [History] Multivit-Min/FA/Lycopen/Lutein [Centrum Silver Tablet] 1 tab PO HS 11/12/17 [History] Ubidecarenone [Co Q-10] 200 mg PO DAILY 11/12/17 [History] Esomeprazole Magnesium 20 mg PO DAILY 08/25/21 [History] rOPINIRole HCL [Requip] 4 mg PO HS 08/25/21 [History] sitaGLIPtin PHOS/metFORMIN HCL [Janumet 50-1,000 mg Tablet] 1 each PO BID [History] Cholecalciferol [Vitamin D3 (25 Mcg = 1000 Iu)] 25 mcg PO DAILY 09/13/21 [History] Ezetimibe [Zetia] 10 mg PO HS 09/13/21 [History] HYDROcodone/APAP 5-325MG [[place] 5-325] 1 tab PO ONCE PRN 09/13/21 [History] Acetaminophen/Diphenhydramine [Tylenol Pm Ex-Strength Caplet] 1 - 2 tab PO HS PRN 10/04/21 [History] Ondansetron [Zofran] 4 mg PO Q8HR PRN 04/27/22 [History] Cyclobenzaprine [Flexeril] 5 mg PO TID PRN #60 tablet 05/04/22 [Rx] Follow up Appointment(s)/Referral(s): Agnes Machuca DO [Doctor of Osteopathic Medicine] - 2 Weeks Activity/Diet/Wound Care/Special Instructions: Keep site clean. May shower with waterproof Optifoarm intact. Do not soak in a tub. After 72 hours postoperatively, patient May remove dressing and then may shower with area uncovered. Leave glue intact and allow it to fray off on its own. May ambulate as tolerated. Avoid heavy or rigorous activity. No repetitive bending twisting or lifting. No overhead work. The patient states that she has oral pain medications at home and does not need a new prescription Patient may utilize walker to aid in ambulation at home as needed -.-.-.-.-.-..-. heart healthy diet we recommend to check your glucose 4 times a day before each meal and at bed time , keep the results in a log book and bring it to your doctor upon your appointment date if your glucose is less than 70 or more than 400 then call 911 and come to emergency room Discharge Disposition: HOME SELF-CARE
[2022-05-04 08:59] LABS: Basophils # (A) 0.05 X 10*3/uL (0.00-0.10); Basophils % (A) 0.3 %; Eosinophils # (A) 0.09 X 10*3/uL (0.04-0.35); Eosinophils % (A) 0.5 %; HGB 9.7 g/dL (12.0-15.0); Immature Grans, Automated 0.5 %; Lymphocytes # (A) 2.15 X 10*3/uL (0.90-5.00); Lymphocytes % (A) 12.1 %; MCH 30.5 pg (27.0-32.0); MCHC 34.6 g/dL (32.0-37.0); MCV 88.1 fL (80.0-97.0); Mean Platelet Volume 10.1 fL (9.5-12.2); Monocytes # (A) 2.03 X 10*3/uL (0.20-1.00); Monocytes % (A) 11.5 %; NRBC Per 100 WBC 0 /100 WBCS (0.0-0.0); Neutrophils # (A) 13.31 X 10*3/uL (1.80-7.70); Neutrophils % (A) 75.1 %; Platelet Count 221 X 10*3/uL (140-440); RBC 3.18 X 10*6/uL (4.10-5.20); WBC 17.71 X 10*3/uL (4.50-10.00)
[2022-05-04 09:29] LABS: African American GFR (CKD) 78.6 (60.0-200.0); Anion Gap 11.9 mmol/L (10.00-18.00); BUN/Creat Ratio 14.13 Ratio (12.00-20.00); Blood Urea Nitrogen 11.9 mg/dL (9.0-27.0); Calcium 8.4 mg/dL (8.7-10.3); Carbon Dioxide 23.2 mmol/L (20.0-27.5); Non-African American GFR(CKD) 67.8 (60.0-200.0); Potassium 3.9 mmol/L (3.5-5.5)
--- NOTE | 2022-05-04 21:24 | P.PN ---
Subjective this is a pleasant 76 yo F with past medical history of hypertension, hyperlipidemia, diabetes mellitus, hypothyroidism, chronic back pain as well as osteoarthritis. Patient has sustained low back injury and compression of fracture of L2 and L4 about 1 ago that's been successfully treatment locally with epidural injection 10 4 however patient has recurrent of pain that caused her problem and difficult and mobility. With some evidence of spinal stenosis, she's been evaluated by surgical team and she underwent decompression surgery and fusion procedure of her lumbar spine today. She is status post posterior lumbar decompression fusion transforaminal lumbar interbody fusion L4-L5. Today is postoperative day #0. Patient seen and evaluated in the extended stay unit, she was awake alert but lethargic, she was still complaining of from low back pain 8/10 going to both lower extremity. She denies chest pain or dyspnea, no abdominal pain or diarrhea, she denies any diarrhea or urinary complaints. She has a Mohan catheter with clear urine She's been complained from nausea Patient vitals are stable. Labs showing sodium 136, potassium slightly high 5.2 but hemolyzed. Creatinine normal 0.8. 05/03/2022 patient was seen in walking in her room uses a walker with the help of physical therapist. She was doing most of thejobt. It looks pain is controlled Patient overall showing improvement. Vitals are stable. Labs showing potassium 4.4, however creatinine 1.0, but was 0.8 yesterday. Recheck creatinine tomorrow especially patient is on metformin. Glucose is 137-155 Her hemoglobin is 10.4 and WBCs 17,000 most likely reactive from her surgery Hemoglobin A1c 6.3 which looks pretty controlled diabetes. We recommend patient follow up closely as an outpatient including her PCP in one week. Also recommend keep monitoring sugar as an outpatient, written discharge instruction is provided 05/04/2022 Patient is awake and alert, she says her back pain and leg pain is improving every day. She denies any other symptoms, she denies burning in her urine, no urgency or hesitancy. No chest pain or dyspnea. No abdominal pain or vomiting. No diarrhea. No headache or weakness or numbness. Gait at baseline, she is a walker, she has some lymphedema in her right side but she says that since his been chronic for years. Labs reviewed and WBC is 17.7 today compared to 17.2 yesterday. Postop CBC and BMP are reviewed and they're unremarkable, potassium 3.9, hemoglobin stable 9.7. Glucose controlled on 25-to 44. Creatinine back to 0.8. Patient continued on DVT prophylaxis prior surgery team Patient is medically stable Objective - Vital Signs Vital signs: Vital Signs Temp 98.3 F 05/04/22 05:00 Pulse 94 05/04/22 05:00 Resp 16 05/04/22 05:00 BP 129/68 05/04/22 05:00 Pulse Ox 97 05/04/22 05:00 FiO2 Intake & Output 05/03/22 05/04/22 05/04/22 18:59 06:59 18:59 Intake Total 900 Balance 900 Intake: Intake, IV Titration 900 Amount Sodium Chloride 0.9% 1, 900 000 ml @ 75 mls/hr IV . [id number] [facility] Rx#:[id number] Other: Voiding Method Toilet Toilet # Voids 2 - Exam GENERAL: The patient is alert and oriented x3, not in any acute distress. Well developed, well nourished. HEENT: Pupils are round and equally reacting to light. EOMI. No scleral icterus. No conjunctival pallor. Normocephalic, atraumatic. No pharyngeal erythema. No thyromegaly. CARDIOVASCULAR: S1 and S2 present. No murmurs, rubs, or gallops. PULMONARY: Chest is clear to auscultation, no wheezing or crackles. ABDOMEN: Soft, nontender, nondistended, normoactive bowel sounds. No palpable organomegaly. MUSCULOSKELETAL: No joint swelling or deformity. -EXTREMITIES: No cyanosis, clubbing, or pedal edema. Lower back surgical wound, dressing in place. Rest of exam is deferred to surgery team NEUROLOGICAL: Gross neurological examination did not reveal any focal deficits. SKIN: No rashes. no petechiae. Gait: Walking using her walker with the help of PT person - Labs CBC & Chem 7: 05/04/22 05:38 05/04/22 05:38 Labs: Abnormal Lab Results - Last 24 Hours (Table) 05/03/22 05/03/22 05/03/22 Range/Units 05:19 11:43 17:36 WBC (4.50-10.00) X 10*3/uL RBC (4.10-5.20) X 10*6/uL Hgb (12.0-15.0) g/dL Hct (37.2-46.3) % Immature Gran # (0.00-0.04) X 10*3/uL Neutrophils # (1.80-7.70) X 10*3/uL Monocytes # (0.20-1.00) X 10*3/uL Glucose (70-110) mg/dL POC Glucose (mg/dL) 137 H 125 H (70-110) mg/dL Hemoglobin A1c 6.3 H (0.0-6.0) % Calcium (8.7-10.3) mg/dL 05/03/22 05/04/22 05/04/22 Range/Units 20:05 05:38 05:38 WBC 17.71 H (4.50-10.00) X 10*3/uL RBC 3.18 L (4.10-5.20) X 10*6/uL Hgb 9.7 L (12.0-15.0) g/dL Hct 28.0 L (37.2-46.3) % Immature Gran # 0.08 H (0.00-0.04) X 10*3/uL Neutrophils # 13.31 H (1.80-7.70) X 10*3/uL Monocytes # 2.03 H (0.20-1.00) X 10*3/uL Glucose 134 H (70-110) mg/dL POC Glucose (mg/dL) 244 H (70-110) mg/dL Hemoglobin A1c (0.0-6.0) % Calcium 8.4 L (8.7-10.3) mg/dL 05/04/22 Range/Units 07:08 WBC (4.50-10.00) X 10*3/uL RBC (4.10-5.20) X 10*6/uL Hgb (12.0-15.0) g/dL Hct (37.2-46.3) % Immature Gran # (0.00-0.04) X 10*3/uL Neutrophils # (1.80-7.70) X 10*3/uL Monocytes # (0.20-1.00) X 10*3/uL Glucose (70-110) mg/dL POC Glucose (mg/dL) 126 H (70-110) mg/dL Hemoglobin A1c (0.0-6.0) % Calcium (8.7-10.3) mg/dL Assessment and Plan Assessment: Lumbar spinal stenosis with history of compression of fracture of L2 and L4 status post lumbar decompression fusion transforaminal lumbar interbody fusion L4-L5 Diabetes mellitus Hypertension Hyperlipidemia Overweight History of restless leg syndrome Plan: This is a pleasant 76 years old female status post decompression of lumbar surgery. Continue with pain management and DVT prophylaxis per primary team Monitor sugar and blood pressure closely. We will continue following with the patient and further recommendation based on her clinical progress GI prophylaxis: Pepcid DVT prophylaxis: Deferred to surgery team Thank you for consulting us patient medically stable. Discussed with staff and bedside nurse We recommend patient follow up with PCP in one week after discharge and she was informed with the same
[2022-05-06] MEDS ORDERED: LEVOTHYROXINE 25 MCG TAB PO SCH (06:30)
== END 2022-05-04 13:10 | disposition home or self-care (01) ==
LOC: OR 07:18 → EDSTATUS 08:30 → 2ORMAIN 12:39 → 5NMEDONC 12:39 → 2ORMAIN 05-03 10:40 → 5NMEDONC 05-03 10:40 → UNDODISOB 05-04 13:10 → OR 05-04 13:10
PROVIDERS: ATTEND Orthopaedic Surgery Orthopaedic Surgery of the Spine
DX: M48.061 Spinal stenosis, lumbar region without neurogenic claudication (principal); M51.16 Intervertebral disc disorders with radiculopathy, lumbar region; M43.16 Spondylolisthesis, lumbar region; M41.86 Other forms of scoliosis, lumbar region; M47.26 Other spondylosis with radiculopathy, lumbar region; E78.5 Hyperlipidemia, unspecified; E11.9 Type 2 diabetes mellitus without complications; E03.9 Hypothyroidism, unspecified; K21.9 Gastro-esophageal reflux disease without esophagitis; I12.9 Hypertensive chronic kidney disease with stage 1 through stage 4 chronic kidney disease, or unspecified chronic kidney disease; N18.2 Chronic kidney disease, stage 2 (mild); R11.0 Nausea; M35.3 Polymyalgia rheumatica; G25.81 Restless legs syndrome; F41.9 Anxiety disorder, unspecified; I89.0 Lymphedema, not elsewhere classified; R26.81 Unsteadiness on feet; F32.A Depression, unspecified; Z90.710 Acquired absence of both cervix and uterus; Z98.51 Tubal ligation status; Z85.41 Personal history of malignant neoplasm of cervix uteri; Z98.42 Cataract extraction status, left eye; Z98.41 Cataract extraction status, right eye; Z96.1 Presence of intraocular lens; Z96.652 Presence of left artificial knee joint; Z96.642 Presence of left artificial hip joint; Z87.891 Personal history of nicotine dependence; Z82.0 Family history of epilepsy and other diseases of the nervous system; Z83.3 Family history of diabetes mellitus; Z82.49 Family history of ischemic heart disease and other diseases of the circulatory system; Z82.3 Family history of stroke; Z79.899 Other long term (current) drug therapy; Z79.890 Hormone replacement therapy; Z79.82 Long term (current) use of aspirin; Z79.84 Long term (current) use of oral hypoglycemic drugs
CPT/HCPCS: 22612; 22853; 20930; 20936; 97162; 86900; 86901; 80048 ×3; 83735; 85025 ×2; 86850; 83036; 72100; C1713 ×2; C1762; J2250; J0330; J1100; J2710; J0690 ×2; J2405; J3010; J1170 ×3; J2704; J2001; 96361; 96365; 96366; 96375; 96376

== ENCOUNTER → 2023-01-18 | Outpatient (CLI) | payer MEDICARE ==
--- NOTE | 2023-01-21 11:09 | BD ---
EXAMINATION TYPE: Axial Bone Density DATE OF EXAM: 01/18/2023 CLINICAL HISTORY: 77 years old Female. ICD-10 CODE: M81.0 AGE RELATED OSTEOPOROSIS Height: 62" Weight: 164.4lbs FRAX RISK QUESTIONS: Alcohol (3 or more units per day): no Family History (Parent hip fracture): no Glucocorticoids (More than 3mos): Yes, on for about 2 years previously for polymyalgia, currently on steroids again for possibly recurrence (Ex: prednisone, prednisolone, methylprednisolone, dexamethasone, and hydrocortisone). History of Fracture in Adulthood: Yes Secondary Osteoporosis: 1. Type 1 Diabetes: no 2. Hyperthyroidism: no 3. Menopause before 45: no 4. Malnutrition: no 5. Chronic liver disease: no Rheumatoid Arthritis: no Current Tobacco Use: no RISK FACTORS HISTORY OF: Hip Fracture (Right/Left): no Spine Fracture: yes, lumbar When: 3 years ago History of Wrist Fracture: no Surgery to Spine/Hip(right/left)/Wrist (right/left): Left hip replacement, broken back in 3 areas inc luding lumbar When: Hip about 3 years ago, Back May 02, 2022 Family History of Osteoporosis: no Active: yes Diet low in dairy products/other sources of calcium: no Postmenopausal woman: yes Lost more than 2 inches in height since high school: yes Frequent falls: no Poor Health: no Hyperparathyroidism: no Adrenal Insufficiency: no MEDICATIONS: Prednisone or other steroids: yes How Long: on and off for several years, currently for a few months Thyroid Medications: yes Which medication: levothyroxine How Long: many year, 20+ years Osteoporosis Medications: no Additional Medications: Metroprolol, prednisone, boquafin, levothyroxine, muscle cramp meds, reflux m edication, vit B, D, coq10, multivitamin, baby aspirin, tylenol pm Additional History: None that have not been noted. Scanned Right femur and forearm due to left hip an d spine surgery, left had is dominant. EXAM MEASUREMENTS: Bone mineral densitometry was performed using the evly System. Bone mineral density about the R hip (g/cm2): 0.887 T Score values are as follows: -----R Neck: -1.1 -----R Total: -1.0 Z Score values are as follows: -----R Neck: 0.7 -----R Total: 0.6 Baseline Bone mineral density about the R Wrist (g/cm2): 0.629 T Score values are as follows: -----Dist. R+U: -1.3 -----Prox. R+U: -0.8 -----Radius total: -0.8 Z Score values are as follows: -----Dist. R+U: 1.0 -----Prox. R+U: 1.6 -----Radius total: 1.6 Baseline FRAX%s: The graph provided illustrates a 23.3% chance for a major osteoporotic fx and a 4.2% chance f or the hips probability for fx in 10 years time. IMPRESSION: Normal (Values between +1 and -1 indicate normal bone mass). Consider repeating this study in 5 year s or sooner if there is some new clinical indication. NOTE: T-SCORE=SD OF THE YOUNG ADULT MEAN.
--- NOTE | 2023-01-21 19:15 | MM ---
Reason for Exam: Screening (asymptomatic). Last mammogram was performed 5 year(s) and 10 month(s) ago. Patient History: Menarche at age 14. First Full-Term at age 21. Hysterectomy at age 38. Postmenopausal. Endometrial cancer, age 38. Estrogen for 8 years, 8 months. Risk Values: Jolie 5 year model risk: 1.6%. NCI Lifetime model risk: 3.2%. Prior Study Comparison: 02/11/2006 Bilateral Diagnostic Mammogram, [facility]. 09/30/2013 Bilateral Screening Mammogram, [facility]. 03/19/2017 Bilateral Screening Mammogram, [facility]. Tissue Density: The breast tissue is heterogeneously dense. This may lower the sensitivity of mammography. Findings: Analyzed By CAD. There appears symmetrical and stable. No significant interval change is evident. No suspicious groups of microcalcifications, spiculated or lobular masses, architectural distortion or other secondary signs of malignancy are mammographically apparent. Overall Assessment: Negative, BI-RAD 1 Management: Screening Mammogram of both breasts in 1 year. A negative mammogram report should not preclude additional follow up of suspicious palpable abnormalities. Patient should continue monthly self breast exam. A clinical breast exam by your physician is recommended on an annual basis and results should be correlated with mammographic findings. Electronically signed and approved by: Ephraim Nichols D.O. Radiologis
== END | disposition home or self-care (01) ==
LOC: RADMAMWWP 14:52
PROVIDERS: ATTEND Internal Medicine Geriatric Medicine
DX: Z12.31 Encounter for screening mammogram for malignant neoplasm of breast (principal); M81.0 Age-related osteoporosis without current pathological fracture; M35.3 Polymyalgia rheumatica; Z78.0 Asymptomatic menopausal state; Z79.52 Long term (current) use of systemic steroids; Z96.642 Presence of left artificial hip joint
CPT/HCPCS: 77063; 77067; 77080